=== PATIENT | female | born 1975 | race African-American/Black ===

== ENCOUNTER 2016-11-03 16:03 | Inpatient (IN) | payer OTHER ==
--- NOTE | ~2016-11-03 | IDS ---
Interim Discharge Summary [facility] [address] [place]. [address] NAME: AMAIRANI ROY : 73 STATUS : ADM IN [facility]#: [id number] AGE: 41 ADM/REG DATE : 11/03/16 MR#: [id number] REPORT SERV DATE: 11/18/16 DICTATED BY: SHELDON CAI DATE: 11/17/16 REPORT STATUS : Draft TRANSCRIBED BY: MODL DATE: 11/17/16 ADMISSION DATE: 11/03/2016 DISCHARGE DATE: REASON FOR ADMISSION: High-grade small bowel obstruction. Please refer to Dr. Dacosta's H and P on 11/03/2016, for full details on admission and interim discharge summary from Liu Lundberg on 11/10/2016, for further details on hospital stay. INTERIM DISCHARGE DIAGNOSES: 1. 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 2. Acute kidney injury. 3. Lupus. 4. Elevated alkaline phosphatase. 5. Chronic low back wound. 6. Anemia of chronic disease. 7. Mild mental retardation. 8. Acute pain secondary to surgery. 9. Leukocytosis with highly elevated procalcitonin. HOSPITAL COURSE: 1. We picked up the patient on 11/11/2016, GI was consulted on this day as well. The patient's bowel obstruction was not resolving and so Dr. Graff, finally decided to take patient to surgery on the , where he would perform diagnostic laparoscopy, right colectomy, and needle biopsy of liver. He found a cecal volvulus post surgery. The patient has been started on TPN with only clear liquids. She is tolerating clear liquids okay, then has experienced a lot of pain postoperatively. Additionally, she has had leukocytosis postop with her white blood cell count being size 21,000 and her procalcitonin being significantly elevated at 42.91. She was started on IV Mefoxin and her white blood cell count has trended down to 15. She has been afebrile. We will repeat procalcitonin tomorrow to make sure that is trending down and consider stopping IV antibiotics soon. 2. Elevated alkaline phosphatase. CASSI was checked which was negative. 3. Acute kidney injury. The patient's creatinine was at 2.19 on the when we took over and has trended down to 1.35. 4. Anemia. The patient does have anemia of chronic disease, but had some acute blood loss anemia postop and required 2 units of packed red cells. Her hemoglobin had gotten down to 6.9 and is now up to 8.4. CURRENT MEDICATION: 1. Aspirin 81 mg p.o. daily. 2. Naproxen 1 g IV q.8 hours. 3. Pepcid 20 mg IV q.12 hours. 4. Heparin 5000 units subcu q.8 hours. 5. Mycophenolate 500 mg p.o. daily. 6. Sertraline 100 mg p.o. daily. 7. TPN. Interim Discharge Summary [place] [address] [place]. [address] NAME: AMAIRANI ROY : 73 STATUS : ADM IN [facility]#: [id number] AGE: 41 ADM/REG DATE : 11/03/16 MR#: [id number] REPORT SERV DATE: 11/18/16 DICTATED BY: SHELDON CAI DATE: 11/17/16 REPORT STATUS : Draft TRANSCRIBED BY: ARCELIA DATE: 11/17/16 CURRENT PLAN: Try to continue to nurse along patient's pain and eating postoperatively and nutritional status for TPN, try to get the patient mobilized in the next few days. The patient will likely be here through the week. The patient care to be assumed by Liu Lundberg and Ten Alvarenga. SHANIQUA/ARCELIA Sheldon Cai APN / [id number] CC: Leonides Cole M.D. Johnnie Gavin M.D. MD Wesley Ferrera Jr., M.D. Christopher Lawrence Reynolds, NP
--- NOTE | ~2016-11-03 | HP ---
History And Physical [place] [id number] [facility] [place]. [address] NAME: AMAIRANI ROY : 73 STATUS : ADM IN [facility]#: [id number] AGE: 41 ADM/REG DATE : 11/03/16 MR#: [id number] REPORT SERV DATE: 11/03/16 DICTATED BY: MARTIN TUCKER II DATE: 11/03/16 REPORT STATUS : Draft TRANSCRIBED BY: MODL DATE: 11/03/16 DATE OF ADMISSION: 11/03/2016 CHIEF COMPLAINT: Nausea, vomiting, and abdominal pain. HISTORY OF PRESENT ILLNESS: The patient is a 41-year-old female with a history of lupus, DVTs, mental retardation, and chronic back wound as well as chronic anemia, who presented to [facility] due to nausea, vomiting, and abdominal pain. The patient states her symptoms started last , she has been vomiting bilious emesis. She originally went to [place] where she was apparently diagnosed with bronchitis and sent home with azithromycin. She has not improved and has had no oral intake since last week and presented to [facility] today and was found to be in acute renal failure with a small bowel obstruction. The Hospitalist Service was consulted for admission. Otherwise, the patient denies any shortness of breath, cough, recent cold, congestion, fevers, or chills. Denies any hematemesis, melena, or hematochezia. She did mention she has had been having about two to three liquid stools over the past several days since . She actually went to see her primary care physician, Dr. Gavin today, who had her come to the ER. The patient has a chronic back wound, which is reportedly managed at [place]. The patient does have some degree of likely MR and is fairly poor historian and unaware of most of her medical history and definitely does not know any of her home medications. She lives in a home with central supply assistant in an assisted living type situation, though not an official home. REVIEW OF SYSTEMS: A 10-point review of systems is otherwise negative except for HPI. PAST MEDICAL HISTORY: 1. Lupus with uncertain manifestations. 2. Anemia of chronic disease. 3. Chronic midthoracic back wound managed at [place]. 4. History of DVT. 5. Mental retardation. SURGICAL HISTORY: Cholecystectomy. SOCIAL HISTORY: The patient denies any alcohol, tobacco, or drug use. As mentioned above, she lives with a caregiver in an assisted living type at home. The central supply assistant's name is Tamanna Culver, phone number, . FAMILY HISTORY: Unknown. The patient reports her parents of unknown causes. HOME MEDICATIONS: Unknown. The patient is unaware and the central supply assistant is reportedly going to call in with a list. PHYSICAL EXAMINATION: VITAL SIGNS: Blood pressure 109/71, temperature 97.5, pulse 111, respirations 16, O2 saturation 97% on room air. History And Physical [address] [address] NAME: AMAIRANI ROY : 73 STATUS : ADM IN [facility]#: [id number] AGE: 41 ADM/REG DATE : 11/03/16 MR#: [id number] REPORT SERV DATE: 11/03/16 DICTATED BY: MARTIN TUCKER II DATE: 11/03/16 REPORT STATUS : Draft TRANSCRIBED BY: MODCira DATE: 11/03/16 GENERAL: The patient is alert and oriented x3, in no acute distress. NECK: Supple. Nontender. No lymphadenopathy or thyromegaly. HEENT: Dry mucous membranes. Pupils are equal, round, reactive to light. Conjunctivae clear. RESPIRATORY: Lungs are clear to auscultation bilaterally. No wheezes, rhonchi, or rales. CARDIOVASCULAR: Regular rate and rate and rhythm. No murmurs, rubs, or gallops. ABDOMEN: Soft with mild tenderness to palpation in the upper abdomen, but no specific masses or focal areas of tenderness. EXTREMITIES: No cyanosis, clubbing, or edema. SKIN: There is a fairly large wound in the center of the patient's back, which appears chronic and with good granulation and no evidence of cellulitis. LABORATORY DATA: WBC 13, hemoglobin 10.2, platelets 586. Sodium 142, potassium 4.1, chloride 101, CO2 of 26, BUN 44, creatinine 4.74, glucose 109. Total protein 10.8, albumin 3.1, alkaline phosphatase 1205, T bili 0.3, ALT 24, AST 26, lipase 121. Urinalysis unremarkable. RADIOGRAPHIC DATA: CT of the abdomen and pelvis shows small bowel obstruction with a small volume of ascites in the upper quadrants, slightly larger in the lower abdomen and pelvis. Also chronic wound overlying the thoracolumbar junction with soft tissue calcifications. There is suspicion for foreign body at the inferior aspect of the left kidney. ASSESSMENT AND PLAN: The patient is a 41-year-old female with, 1. Acute kidney injury likely secondary to volume depletion in setting of small bowel obstruction. We will give aggressive IV fluids and follow. CT did not show any evidence of hydronephrosis. 2. Small bowel obstruction. Dr. Graff has been notified and we will go ahead and place an NG tube and hydrate. We will perform a small-bowel follow-through in the morning. 3. Leukocytosis without any evidence of infection likely volume depletion. 4. Thrombocytosis also likely secondary to volume depletion or reactive. 5. History of lupus. The patient reports she was supposed to be on prednisone, but is unable to tell me any of her other home medications. 6. History of deep venous thrombosis, though again uncertain what medications she is on. So, we will place on a heparin drip until medications reconciled. 7. Elevated alkaline phosphatase likely secondary to her bowel obstruction. 8. Anemia of chronic disease. We will monitor and transfuse as needed. 9. Metallic foreign body in left kidney of uncertain significance. 10.The patient is a full code. NICHOLE/ARCELIA Martin Tucker II, MD / [id number] History And Physical [address] [address] NAME: AMAIRANI ROY : 73 STATUS : ADM IN [facility]#: [id number] AGE: 41 ADM/REG DATE : 11/03/16 MR#: [id number] REPORT SERV DATE: 11/03/16 DICTATED BY: MARTIN TUCKER II DATE: 11/03/16 REPORT STATUS : Draft TRANSCRIBED BY: ARCELIA DATE: 11/03/16 CC: Char Witt M.D.
--- NOTE | ~2016-11-03 | CN ---
Consultation Report [facility] [address] [place]. [address] NAME: AMAIRANI ROY : 73 STATUS : ADM IN PAT#: [id number] AGE: 41 ADM/REG DATE : 11/03/16 MR#: [id number] REPORT SERV DATE: 11/11/16 DICTATED BY: JAH PANTOJA DATE: 11/11/16 REPORT STATUS : Draft TRANSCRIBED BY: MODL DATE: 11/11/16 INPATIENT CONSULT NOTE DATE OF CONSULTATION: 11/10/2016 REASON FOR CONSULTATION: Persistent small bowel obstruction and concern for inflammatory bowel disease. HISTORY OF PRESENT ILLNESS: Mrs. Roy is a very pleasant 41-year-old female with a past medical history significant for reported systemic lupus erythematosus, history of DVTs, chronic anemia, and mild mental retardation, who presented to [facility] approximately one week ago with complaints of nausea, vomiting, and abdominal pain. The patient's symptoms had started suddenly with the acute onset of nausea and vomiting. Upon presentation and evaluation in the emergency department, she was found to have signs of acute renal failure as well as small bowel obstruction. With CT of the abdomen and pelvis and with proximal small bowel loops that were distended and fluid filled with gas fluid levels measuring up to 3.2 cm in diameter, no other significant abnormalities were noted aside from the patient's status post cholecystectomy. The patient was seen by Dr. Graff from Surgery and has been followed for the last week with little improvement in her symptoms. The patient has been unable to tolerate p.o. and continues to have frequent episodes of nausea with vomiting. The patient underwent a small bowel follow-through two days after her admission, which showed little change in migration of the contrast through the obstructed intestine strongly suggestive of a high-grade small bowel obstruction. The patient has been followed with daily KUBs without significant improvement in the dilation seen, although contrast was noted to move through the area of noted obstruction and into her colon. Speaking with the patient, the patient states that she has had intermittent episodes of diarrhea in the past , but no significant ongoing problems. The patient denies any problems with hematochezia or with abdominal pain associated with her episodes of abdominal pain. No. family history inflammatory bowel disease. No history of liver disease. No family history of GI related malignancies. By report, the patient has been noted to have "lesions" on her lower extremities that sometime has had an ulcerated appearance, although none were seen at the current point in time. Note was also made of the patient's labs, which were most significant for a markedly elevated alkaline phosphatase of over 1200. REVIEW OF SYSTEMS: All systems were reviewed and were negative aside from what was mentioned in the history of present illness. PAST MEDICAL HISTORY: Includes: 1. Mild mental retardation. 2. Systemic lupus erythematosus. Consultation Report [address] [place]. [address] NAME: AMAIRANI ROY : 73 STATUS : ADM IN PAT#: [id number] AGE: 41 ADM/REG DATE : 11/03/16 MR#: [id number] REPORT SERV DATE: 11/11/16 DICTATED BY: JAH APNTOJA DATE: 11/11/16 REPORT STATUS : Draft TRANSCRIBED BY: ARCELIA DATE: 11/11/16 3. Anemia of chronic disease. 4. Chronic mid thoracic back wounds. 5. History of DVTs. 6. Status post cholecystectomy. FAMILY HISTORY: The patient states she has no family history of IBD or GI related malignancies. No history of liver disease. SOCIAL HISTORY: The patient denies to alcohol, tobacco, or drug use. ALLERGIES: THE PATIENT HAS ALLERGIES TO SULFA MEDICATIONS. HOME MEDICATIONS: Include: 1. Aspirin. 2. Lasix. 3. Zoloft. 4. Coumadin. 5. Reglan. 6. Vitamin D. 7. CellCept. 8. Phenergan. 9. Othello. 10.Z-Vlad. 11.Calmoseptine. PHYSICAL EXAMINATION: VITAL SIGNS: Most recent vital signs include a temperature of 97.0, pulse rate of 102, blood pressure of 119/83, and saturating 98% on room air. GENERAL INSPECTION: Reveals a middle-aged female, lying on the side of her bed and actively vomiting. HEENT: Head is normocephalic, atraumatic. Oral mucosa appears to be moist. Sclerae nonicteric. Pupils are equal and round. HEART: Heart rate is mildly tachycardic. LUNGS: Sounds clear to auscultation bilaterally. ABDOMEN: Soft with only mild distention. The patient has no bowel sounds that were appreciated. No masses were appreciated. EXTREMITIES: No cyanosis, clubbing, or edema. No lesions were noted on the patient's legs aside from a single old scar with whitened discoloration. No jaundice or rash was noted. No gross motor deficits. NEUROLOGIC: She was alert. The patient was oriented and mood and affect appear to be appropriate. LABORATORY DATA: Most recent laboratory results showed a CBC with white count of 8.2, hemoglobin of 8.7, and a platelet count of 437,000. Basic electrolyte panel showed elevated BUN and creatinine of 35 and 2.2, otherwise unremarkable. The patient had previously been Consultation Report [address] [address] NAME: AMAIRANI ROY : 73 STATUS : ADM IN PAT#: [id number] AGE: 41 ADM/REG DATE : 11/03/16 MR#: [id number] REPORT SERV DATE: 11/11/16 DICTATED BY: JAH PANTOJA DATE: 11/11/16 REPORT STATUS : Draft TRANSCRIBED BY: ARCELIA DATE: 11/11/16 noted to have an isolated elevated alkaline phosphatase noted to be 1205. Total bilirubin was normal at 0.3 and transaminases were both normal as well. CT of the abdomen as well as small bowel follow-through and recent KUBs were examined and are as noted in the history of present illness. ASSESSMENT AND PLAN: Mrs. Roy is an unfortunate 41-year-old female with a past medical history of reported lupus, who presented with signs and symptoms of a high-grade small bowel obstruction. It does not appear that this bowel obstruction is resolving. It has been more than a week that she has been having symptoms, so at this point, we will defer management of this to our surgical colleagues. Unfortunately, in terms of further evaluation, endoscopy cannot be applied or pursued in this setting and is contraindicated in the setting of bowel obstruction. Given the patient's history and imaging that we have inflammatory bowel disease seems highly unlikely, although a surgical specimen could help to either prove or disprove this theory. With the patient's symptoms continuing for a week now, it would appear that a surgical resolution may be in the near future. However, for the patient's isolated alkaline phosphatase as part of the differential primary biliary cirrhosis should be considered, we would recommend an ultrasound of the abdomen as well as checking an antimitochondrial antibody for further evaluation. Thank you very much for this interesting consult. We will follow along for now. Please call with any questions or concerns. WMC/MODL Jah Pantoja MD / [id number] CC: Francisco Marie M.D.
--- NOTE | ~2016-11-03 | DS ---
Discharge Summary [facility] [address] [place]. [address] NAME: AMAIRANI ROY : 73 STATUS : DIS IN PAT#: [id number] AGE: 41 ADM/REG DATE : 11/03/16 MR#: [id number] REPORT SERV DATE: 11/22/16 DICTATED BY: REX LUNDBERG DATE: 11/21/16 REPORT STATUS : Draft TRANSCRIBED BY: MODL DATE: 11/21/16 ADMISSION DATE: 11/03/2016 DISCHARGE DATE: 11/21/2016 REASON FOR ADMISSION: Nausea, vomiting, and abdominal pain secondary to high-grade small- bowel obstruction. HISTORY OF PRESENT ILLNESS: Please refer to Dr. Dacosta's history and physical dated 11/03/2016 for complete details regarding the patient's admission. In brief, the patient was admitted to the Hospitalist Service for acute kidney injury and small bowel obstruction. HOSPITAL COURSE: From admission to 11/10/2016, please refer to my interim summary. In brief, the patient was diagnosed with high-grade small bowel obstruction. After her small- bowel follow-through, Dr. Graff was consulted. She had been slowly improving after having an NG tube and felt that her symptoms were resolving. I then handed her care off to Allegra Sharp on 11/11/2016. From hospital course 11/11/2016 to 11/18/2016, please refer to Allegra Sharp's interim summary. In brief, the patient was diagnosed with bowel obstruction secondary to cecal volvulus and then Dr. Graff took the patient to the OR to have a right colectomy. Her acute kidney injury had been resolving. GI Medicine was consulted, but given the fact that she was not improving, Dr. Graff finally took the patient to the OR. She was then started on TPN and had a markedly elevated white blood cell count of around 21,000, which have been trending down. Dr. Cole and Mr. Dr. Sharp had started the patient on cefoxitin. Hospital course from 11/19/2016 to present, I reassumed care of this patient on 11/19/2016 from Mr. Fredi Sharp, at which point, we had weaned off her TPN. She still had a poor appetite, but she was able to tolerate p.o. Physical Therapy had worked with her and felt with her chronic wounds and her recent surgery, she would best be served to be under a rehab facility. Case Management was consulted and discussed with the patient's sister, who is the power of regulatory attorney, and we have placed her at [facility]. The patient continues to have a flat affect and concerned for depression. However, after talking with her sister, she typically does not communicate very well to strangers. She showed very little motivation to ambulate, which is why we have gotten Physical Therapy to aggressively work with her. She has reached maximal hospitalization and will be discharged today, [facility] if okay by Dr. Graff. DISCHARGE DIAGNOSES: Small bowel obstruction, now resolved, secondary to cecal volvulus, status post right colectomy; acute kidney injury, now stable; lupus, on CellCept; chronic low back wound; anemia of chronic disease; mild mental retardation; leukocytosis after surgery, resolved; and a history of deep vein thrombosis, not on anticoagulation. PROCEDURES: Include consultation with Dr. Graff and Dr. Bauer. Chest x-ray, KUB, echocardiogram, small-bowel follow-through, CT scan of the abdomen and pelvis, diagnostic laparoscopy with a right colectomy and needle biopsy of liver. DISCHARGE MEDICATIONS: Include aspirin 81 mg daily, Zoloft 150 mg daily, CellCept 500 mg daily, hydrocodone p.r.n. pain #10 given, Phenergan p.r.n. nausea, Lasix 20 mg p.r.n. swelling, vitamin D 2000 units daily, Reglan 5 mg before meals and at bedtime. Discharge Summary [address] [address] NAME: AMAIRANI ROY : 73 STATUS : DIS IN PAT#: [id number] AGE: 41 ADM/REG DATE : 11/03/16 MR#: [id number] REPORT SERV DATE: 11/22/16 DICTATED BY: REX LUNDBERG DATE: 11/21/16 REPORT STATUS : Draft TRANSCRIBED BY: ARCELIA DATE: 11/21/16 Spending over 30 minutes in discharge planning, coordination of care on Ms. Amairani Roy. CHUCK/ARCELIA Rex Lundberg MD / [id number] CC: MD Johnnie Ferrera M.D. John Gwin Jr., M.D.
--- NOTE | ~2016-11-03 | OP ---
Record Of Operation [facility] [address] [place]. [address] NAME: AMAIRANI ROY : 73 STATUS : ADM IN PAT#: [id number] AGE: 41 ADM/REG DATE : 11/03/16 MR#: [id number] REPORT SERV DATE: 11/14/16 DICTATED BY: KALPANA DESOUZA JR. DATE: 11/13/16 REPORT STATUS : Draft TRANSCRIBED BY: MODL DATE: 11/13/16 DATE OF PROCEDURE: 11/13/2016 SURGEON: Kalpana Desouza M.D. COMPUTER TECHNOLOGY INSTRUCTOR: Jvoany Lira. PROCEDURE: Diagnostic laparoscopy, right colectomy, needle biopsy of liver. PREOPERATIVE DIAGNOSIS: Small bowel obstruction, abnormal liver function tests. POSTOPERATIVE DIAGNOSIS: Small bowel obstruction, abnormal liver function tests. ANESTHESIA: General. INDICATIONS: The patient has presented with intermittent small bowel obstruction, which is not completely resolved. Exploration is indicated. She also has had abnormalities in liver function tests without specific abnormality on liver imaging. FINDINGS: On laparoscopic exam of the abdomen, there is some distention of the small bowel and some chronic changes. There is evidence of a very mobile cecum which is actually partially volvulized in a bascule type fashion which appears to be the etiology, no other site of obstruction is identified. The liver does have a somewhat congested appearance. A needle biopsy was obtained. An open right colectomy was performed for treatment. No other significant findings were encountered except again for some chronic thickening of the entire small bowel. DESCRIPTION OF PROCEDURE: With adequate general anesthesia, the patient was placed in supine position. The abdomen was prepped and draped sterilely. 0.5% Marcaine was used for local infiltration of trocar sites. A supraumbilical incision was utilized. Incision was deepened through the subcutaneous tissues. The fascia and perineum were opened. The peritoneum cavity was entered. A balloon-tipped trocar was introduced, and the abdomen was insufflated with CO2. The laparoscope was introduced. Additional 5-mm trocar was placed in the left upper quadrant. The bladder findings were encountered. It was elected to proceed with enlargement of the midline incision as the colon was quite mobile. This was accomplished. The right colon was fully mobilized along the proximal transverse colon. Sites were selected for revision of the terminal ilium and the transverse colon with a MAYRA 75 and the mesentery was clamped and divided securing all bleeders with ligatures and suture ligatures of silk. Then, a [id number] functional end-to-end ileocolostomy was created. This was reinforced with suture of 3-0 silk. Then, the measured defect was also closed with suture of 3-0 silk. A core biopsy was utilized to take 2 samples from the left hepatic lobe, and these were submitted for permanent section. The abdomen was irrigated with saline. There was some ascites present. Hemostasis was assured. The wound was closed, fascial layer with 0 PDS, subcutaneous with Vicryl and dermal Monocryl. A negative pressure CHELITA dressing was applied. The patient tolerated the procedure well and left the operating room in satisfactory condition. Record Of Operation [address] [address] NAME: AMAIRANI ROY : 73 STATUS : ADM IN [facility]#: [id number] AGE: 41 ADM/REG DATE : 11/03/16 MR#: [id number] REPORT SERV DATE: 11/14/16 DICTATED BY: KALPANA DESOUZA JR. DATE: 11/13/16 REPORT STATUS : Draft TRANSCRIBED BY: ARCELIA DATE: 11/13/16 ESTIMATED BLOOD LOSS: 30 mL. DARYL/ARCELIA Kalpana Desouza Jr., M.D. / [id number] CC: Francisco Marie M.D.
--- NOTE | ~2016-11-03 | IDS ---
Interim Discharge Summary [facility] [address] [place]. [address] NAME: AMAIRANI ROY : 73 STATUS : ADM IN PAT#: [id number] AGE: 41 ADM/REG DATE : 11/03/16 MR#: [id number] REPORT SERV DATE: 11/10/16 DICTATED BY: REX LUNDBERG DATE: 11/10/16 REPORT STATUS : Draft TRANSCRIBED BY: MODL DATE: 11/10/16 ADMISSION DATE: 11/03/2016 DISCHARGE DATE: REASON FOR ADMISSION: High grade small bowel obstruction. HISTORY OF PRESENT ILLNESS: Please refer Dr. Rj Dacosta's history and physical dated 11/03/2016 for complete details regarding the patient's admission. In brief, the patient was admitted to the Hospitalist Service for management and evaluation of her small bowel obstruction and concern for an acute kidney injury. HOSPITAL COURSE: Several issues were addressed: 1. High grade small bowel obstruction. The patient had a CT of abdomen and pelvis done without contrast in emergency room, which showed small bowel obstruction and small volume ascites, chronic wound, and a possible foreign body at the inferior aspect of the left kidney. The patient had an NG-tube placed, Dr. Graff with Surgery was consulted and followed the patient throughout. She had a small bowel follow-through done on 11/05/2016, which was concerning for high grade small bowel obstruction. The following day, she was started to have some liquidy bowel movements and passed gas. Dr. Graff felt that it has been resolving. Her NG tube was removed approximately on 11/06/2016 or 11/07/2016. Since then, she has been tolerating liquids better than solids, she is currently on a solid diet, but she continues to have bilious vomit every now and then. Multiple KUBs have been performed with the last one showing some continued oral contrast scattered throughout the colon and decompressed loops of small bowel in the lower abdomen, there remains suspected gas distended loops of small bowel in the left mid abdomen. Per the nursing staff, she had significant bilious vomiting overnight, but I have never witnessed it. We will switch back to a liquid diet. Dr. Graff should be rounding on her sometime today. I suspect she has partial resolution of her small bowel obstruction with either recurrent ileus or partial small-bowel obstruction. 2. Initial concern for acute kidney injury. The patient presented with an elevated creatinine, we do not have her baseline. It was felt that she had an acute kidney injury given her dehydration, secondary to a small bowel obstruction. However, her creatinine had remained stable. Surprisingly, the CAT scan showed a foreign body at the inferior aspect of the left kidney which may be iatrogenic. Her creatinine had remained stable throughout most of the hospitalization up until the time of dictation, in which case her creatinine went to 2.36, along with an elevated BUN. We will start her on some IV fluids and continue to monitor it, but I suspect she has CKD stage 3, from a lupus nephritis, with now acute kidney injury today, secondary to dehydration. 3. Lupus with probable lupus nephritis. The patient's CellCept was continued. There does not appear to be some any findings of a lupus exacerbation at this point. 4. Chronic wound, this is been stable. 5. Possible yaxa-lw-cgnkjgwd mental retardation. The patient lives at a halfway with a sitter. She follows commands very well and will answer questions, but the patient needs be spoken to at a very low level. 6. Anemia of chronic disease. This has been stable. Interim Discharge Summary [address] [place]. [address] NAME: AMAIRANI ROY : 73 STATUS : ADM IN [facility]#: [id number] AGE: 41 ADM/REG DATE : 11/03/16 MR#: [id number] REPORT SERV DATE: 11/10/16 DICTATED BY: REX LUNDBERG DATE: 11/10/16 REPORT STATUS : Draft TRANSCRIBED BY: MODL DATE: 11/10/16 7. History of DVT. PROCEDURES: Include consultation with Dr. Graff. CT scan of the abdomen and pelvis without contrast. Multiple KUBs. Small-bowel follow-through. DISPOSITION: I anticipate the patient to be discharged back to the halfway once she is able to tolerate food and her bowel obstruction has resolved. Further disposition per Dr. Cole, who will assume care of the patient on 11/11/2016. CHUCK/ARCELIA Rex Lundberg MD / [id number] CC: Rex Lundberg MD
[2016-11-03 16:22] LABS: BASOPHILS 0.2 %; BASOPHILS ABSOLUTE 0.02 10/3/uL (0.0-0.16); EOSINOPHILS 0.6 %; EOSINOPHILS ABSOLUTE 0.08 10/3/uL (0.0-0.53); HEMOGLOBIN 10.2 g/dL (12.0-16.0); IMMATURE GRANULOCYTES 0.6 %; IMMATURE GRANULOCYTES ABSOLUTE 0.08 10/3/uL (0.0-0.11); LYMPHOCYTES ABSOLUTE 2.08 10/3/uL (0.67-4.30); MEAN CORPUS HGB CONC 30.2 g/dL (32.0-36.0); MEAN CORPUSCULAR HEMOGLOB 26.4 pg (26.0-34.0); MEAN CORPUSCULAR VOLUME 87.3 fL (80-100); MEAN PLATELET VOLUME 9.4 fL (9.2-13.0); MONOCYTES 12.3 %; MONOCYTES ABSOLUTE 1.61 10/3/uL (0.21-1.20); NEUTROPHILS 70.3 %; NEUTROPHILS ABSOLUTE 9.17 10/3/uL (2.02-8.40); RBC DISTRIBUTION WIDTH 18.3 % (12.0-16.0); RED CELL COUNT 3.87 10/6/uL (4.0-5.6)
[2016-11-03 16:23] LABS: ER CBC TAT 0 Hrs 05 Mins; HEMATOCRIT 33.8 % (36.0-48.0); MANUAL DIFF NO %; PLATELET COUNT 586 10/3/uL (150-400)
[2016-11-03 16:47] LABS: CHLORIDE, SERUM 101 MMOL/L (96-112); CO2 (CARBON DIOXIDE) 26 MMOL/L (24-34); GLUCOSE, SERUM 109 MG/DL (60-99); SGOT(AST) 26 U/L (5-40); SGPT(ALT) 24 U/L (5-65); SODIUM, SERUM 142 MMOL/L (135-148); TOTAL BILIRUBIN 0.3 MG/DL (0-1.2)
[2016-11-03 16:50] LABS: A/G RATIO 0.4 (0.7-1.9); ALBUMIN 3.1 G/DL (3.5-5.0); ALKALINE PHOSPHATASE 1205 U/L (45-117); BUN (BLOOD UREA NITROGEN) 44 MG/DL (6-23); CALCIUM, SERUM 9.3 MG/DL (8.5-10.4); CREATININE 4.74 MG/DL (0.55-1.02); GFR AFRICAN AMERICAN 12 ML/MIN (>=60); GFR NON AFRICAN AMERICAN 11 ML/MIN (>=60); GLOBULIN 7.7 G/DL (2.5-4.1); POTASSIUM, SERUM 4.1 MMOL/L (3.5-5.3); TOTAL PROTEIN 10.8 G/DL (6.0-8.5)
[2016-11-03 18:52] LABS: ASCORBIC ACID (UR NOT ORDER) NEG (NEG); BILIRUBIN, URINE SMALL (NEG); ER URINALYSIS TAT 0 Hrs 12 Mins; KETONE, URINE TRACE MG/DL (NEG); LEUKOCYTE ESTERASE(NOT OR TRACE (NEG); NITRITE (URINE) NEG (NEG); WBC (NOT ORDERED) (RFLEX) 2 (0-5)
[2016-11-03] MEDS ORDERED: REG5 PO (19:44)
[2016-11-03] MEDS ORDERED: ZOL100 PO (19:44)
[2016-11-03] MEDS ORDERED: ASAB PO (19:44)
[2016-11-03] MEDS ORDERED: C5 PO (19:44)
[2016-11-03] MEDS ORDERED: L20 PO (19:44)
[2016-11-03] MEDS ORDERED: CELLCEPT5 PO (19:45)
[2016-11-03] MEDS ORDERED: PR25 PO (19:45)
[2016-11-03] MEDS ORDERED: VITAMIN D2000 UNIT PO (19:45)
[2016-11-03] MEDS ORDERED: Z-PAK PO (19:46)
[2016-11-03] MEDS ORDERED: NORCO1 TA1 PO (19:46)
[2016-11-03] MEDS ORDERED: CALMOSEPTINE O2.5 OZ TOP (19:46)
[2016-11-04 06:23] LABS: BASOPHILS 0.2 %; BASOPHILS ABSOLUTE 0.02 10/3/uL (0.0-0.16); EOSINOPHILS ABSOLUTE 0.17 10/3/uL (0.0-0.53); HEMOGLOBIN 8.4 g/dL (12.0-16.0); IMMATURE GRANULOCYTES 0.4 %; IMMATURE GRANULOCYTES ABSOLUTE 0.03 10/3/uL (0.0-0.11); LYMPHOCYTES 21.2 %; LYMPHOCYTES ABSOLUTE 1.81 10/3/uL (0.67-4.30); MEAN CORPUS HGB CONC 29.6 g/dL (32.0-36.0); MEAN CORPUSCULAR VOLUME 87.9 fL (80-100); MEAN PLATELET VOLUME 9.4 fL (9.2-13.0); MONOCYTES ABSOLUTE 1.45 10/3/uL (0.21-1.20); NEUTROPHILS 59.2 %; NEUTROPHILS ABSOLUTE 5.07 10/3/uL (2.02-8.40); PLATELET COUNT 457 10/3/uL (150-400); RED CELL COUNT 3.23 10/6/uL (4.0-5.6); WHITE BLOOD CELLS 8.6 10/3/uL (4.5-10.5)
[2016-11-04 06:28] LABS: HEMATOCRIT 28.4 % (36.0-48.0); MANUAL DIFF NO %
[2016-11-04 06:50] LABS: A/G RATIO 0.4 (0.7-1.9); ALBUMIN 2.4 G/DL (3.5-5.0); ALKALINE PHOSPHATASE 987 U/L (45-117); BUN (BLOOD UREA NITROGEN) 45 MG/DL (6-23); CALCIUM, SERUM 7.5 MG/DL (8.5-10.4); CHLORIDE, SERUM 109 MMOL/L (96-112); CO2 (CARBON DIOXIDE) 25 MMOL/L (24-34); CREATININE 4.03 MG/DL (0.55-1.02); GFR AFRICAN AMERICAN 15 ML/MIN (>=60); GFR NON AFRICAN AMERICAN 13 ML/MIN (>=60); GLOBULIN 5.8 G/DL (2.5-4.1); GLUCOSE, SERUM 100 MG/DL (60-99); PHOSPHORUS, SERUM 4.9 MG/DL (2.5-4.5); POTASSIUM, SERUM 3.5 MMOL/L (3.5-5.3); SGOT(AST) 80 U/L (5-40); SGPT(ALT) 30 U/L (5-65); SODIUM, SERUM 147 MMOL/L (135-148); TOTAL BILIRUBIN 0.8 MG/DL (0-1.2); TOTAL PROTEIN 8.2 G/DL (6.0-8.5)
[2016-11-04 16:23] LABS: PARTIAL THROMBO TIME > 150.0 SEC (22.5-37.2)
[2016-11-04 17:23] LABS: INTERNATIONAL NORMAL RATI 4.2 UNITS (-); PROTIME (NOT ORD) 40.4 SEC (12.0-14.5)
[2016-11-05 06:44] LABS: BASOPHILS 0.2 %; BASOPHILS ABSOLUTE 0.02 10/3/uL (0.0-0.16); EOSINOPHILS 1.2 %; HEMATOCRIT 27.1 % (36.0-48.0); HEMOGLOBIN 7.9 g/dL (12.0-16.0); IMMATURE GRANULOCYTES ABSOLUTE 0.08 10/3/uL (0.0-0.11); LYMPHOCYTES 13.5 %; LYMPHOCYTES ABSOLUTE 1.12 10/3/uL (0.67-4.30); MEAN CORPUS HGB CONC 29.2 g/dL (32.0-36.0); MEAN CORPUSCULAR HEMOGLOB 26.4 pg (26.0-34.0); MEAN PLATELET VOLUME 8.9 fL (9.2-13.0); MONOCYTES 11.1 %; MONOCYTES ABSOLUTE 0.92 10/3/uL (0.21-1.20); NEUTROPHILS ABSOLUTE 6.07 10/3/uL (2.02-8.40); PLATELET COUNT 439 10/3/uL (150-400); RBC DISTRIBUTION WIDTH 18.1 % (12.0-16.0); RED CELL COUNT 2.99 10/6/uL (4.0-5.6); WHITE BLOOD CELLS 8.3 10/3/uL (4.5-10.5)
[2016-11-05 06:45] LABS: MANUAL DIFF NO %; MEAN CORPUSCULAR VOLUME 90.6 fL (80-100)
[2016-11-05 06:48] LABS: INTERNATIONAL NORMAL RATI 3.6 UNITS (-); PROTIME (NOT ORD) 35.9 SEC (12.0-14.5)
[2016-11-05 06:54] LABS: CALCIUM, SERUM 7.5 MG/DL (8.5-10.4); CHLORIDE, SERUM 120 MMOL/L (96-112); GLUCOSE, SERUM 81 MG/DL (60-99); POTASSIUM, SERUM 3.6 MMOL/L (3.5-5.3); SODIUM, SERUM 150 MMOL/L (135-148)
[2016-11-05 06:55] LABS: BUN (BLOOD UREA NITROGEN) 35 MG/DL (6-23); CO2 (CARBON DIOXIDE) 18 MMOL/L (24-34); CREATININE 2.12 MG/DL (0.55-1.02); GFR AFRICAN AMERICAN 32 ML/MIN (>=60); GFR NON AFRICAN AMERICAN 28 ML/MIN (>=60); PHOSPHORUS, SERUM 3.6 MG/DL (2.5-4.5)
[2016-11-06 05:53] LABS: HEMATOCRIT 29.1 % (36.0-48.0); HEMOGLOBIN 8.3 g/dL (12.0-16.0); MEAN CORPUS HGB CONC 28.5 g/dL (32.0-36.0); MEAN CORPUSCULAR HEMOGLOB 26.1 pg (26.0-34.0); MEAN CORPUSCULAR VOLUME 91.5 fL (80-100); MEAN PLATELET VOLUME 8.8 fL (9.2-13.0); NUCLEATED RED BLOOD CELLS 1.4 /100WBC (0-0); PLATELET COUNT 482 10/3/uL (150-400); RBC DISTRIBUTION WIDTH 18.3 % (12.0-16.0); RED CELL COUNT 3.18 10/6/uL (4.0-5.6); WHITE BLOOD CELLS 10.2 10/3/uL (4.5-10.5)
[2016-11-06 05:54] LABS: INTERNATIONAL NORMAL RATI 3.4 UNITS (-); MANUAL DIFF YES %; PROTIME (NOT ORD) 33.7 SEC (12.0-14.5)
[2016-11-06 05:57] LABS: CALCIUM, SERUM 7.8 MG/DL (8.5-10.4); CHLORIDE, SERUM 116 MMOL/L (96-112); CO2 (CARBON DIOXIDE) 20 MMOL/L (24-34); CREATININE 1.71 MG/DL (0.55-1.02); GFR AFRICAN AMERICAN 42 ML/MIN (>=60); GFR NON AFRICAN AMERICAN 36 ML/MIN (>=60); POTASSIUM, SERUM 3.5 MMOL/L (3.5-5.3); SODIUM, SERUM 146 MMOL/L (135-148)
[2016-11-06 06:00] LABS: BUN (BLOOD UREA NITROGEN) 26 MG/DL (6-23); GLUCOSE, SERUM 106 MG/DL (60-99); PHOSPHORUS, SERUM 2.6 MG/DL (2.5-4.5)
[2016-11-06 07:25] LABS: ANISOCYTOSIS 1+ (5-10/OIF) (0-5/OIF); BAND NEUTROPHILS 4 %; EOSINOPHILS 1 %; HYPOCHROMIA 1+ (3-10/OIF) (0-2/OIF); LYMPHOCYTES 12 %; LYMPHOCYTES ABSOLUTE (CALC) 1.22 10/3/uL (0.67-4.30); MACROCYTES 1+ (5-10/OIF) (0-5/OIF); METAMYELOCYTES 1 %; MONOCYTES 5 %; MONOCYTES ABSOLUTE (CALC) 0.51 10/3/uL (0.21-1.20); NEUTROPHILS ABSOLUTE (CALC) 8.26 10/3/uL (2.02-8.40); PLATELET ESTIMATE SLT INC (ADEQUATE); POLYCHROMASIA 1+ (2-5/OIF) (0-1/OIF); SEGMENTED NEUTROPHIL (0) 77 %; TOTAL NUCLEATED CELLS 100
[2016-11-07 06:06] LABS: BASOPHILS 0.1 %; BASOPHILS ABSOLUTE 0.01 10/3/uL (0.0-0.16); EOSINOPHILS 3.1 %; EOSINOPHILS ABSOLUTE 0.29 10/3/uL (0.0-0.53); HEMATOCRIT 28.8 % (36.0-48.0); HEMOGLOBIN 8.7 g/dL (12.0-16.0); IMMATURE GRANULOCYTES 1.7 %; IMMATURE GRANULOCYTES ABSOLUTE 0.16 10/3/uL (0.0-0.11); LYMPHOCYTES 15.1 %; LYMPHOCYTES ABSOLUTE 1.41 10/3/uL (0.67-4.30); MEAN CORPUSCULAR HEMOGLOB 26.4 pg (26.0-34.0); MEAN PLATELET VOLUME 9.2 fL (9.2-13.0); MONOCYTES 13.2 %; MONOCYTES ABSOLUTE 1.23 10/3/uL (0.21-1.20); NEUTROPHILS 66.8 %; NEUTROPHILS ABSOLUTE 6.22 10/3/uL (2.02-8.40); PLATELET COUNT 418 10/3/uL (150-400); RBC DISTRIBUTION WIDTH 17.8 % (12.0-16.0); WHITE BLOOD CELLS 9.3 10/3/uL (4.5-10.5)
[2016-11-07 06:11] LABS: MANUAL DIFF NO %; MEAN CORPUS HGB CONC 30.2 g/dL (32.0-36.0); MEAN CORPUSCULAR VOLUME 87.3 fL (80-100)
[2016-11-07 06:15] LABS: CALCIUM, SERUM 7.7 MG/DL (8.5-10.4); CHLORIDE, SERUM 107 MMOL/L (96-112); CO2 (CARBON DIOXIDE) 21 MMOL/L (24-34); CREATININE 1.76 MG/DL (0.55-1.02); GFR AFRICAN AMERICAN 41 ML/MIN (>=60); GFR NON AFRICAN AMERICAN 35 ML/MIN (>=60); GLUCOSE, SERUM 93 MG/DL (60-99); PHOSPHORUS, SERUM 2.4 MG/DL (2.5-4.5); POTASSIUM, SERUM 3.2 MMOL/L (3.5-5.3); SODIUM, SERUM 141 MMOL/L (135-148)
[2016-11-07 06:18] LABS: BUN (BLOOD UREA NITROGEN) 21 MG/DL (6-23)
[2016-11-08 07:24] LABS: BASOPHILS 0.2 %; BASOPHILS ABSOLUTE 0.02 10/3/uL (0.0-0.16); EOSINOPHILS 3.1 %; EOSINOPHILS ABSOLUTE 0.31 10/3/uL (0.0-0.53); HEMATOCRIT 27.9 % (36.0-48.0); HEMOGLOBIN 8.6 g/dL (12.0-16.0); IMMATURE GRANULOCYTES 1.4 %; IMMATURE GRANULOCYTES ABSOLUTE 0.14 10/3/uL (0.0-0.11); LYMPHOCYTES 13.2 %; LYMPHOCYTES ABSOLUTE 1.32 10/3/uL (0.67-4.30); MEAN CORPUS HGB CONC 30.8 g/dL (32.0-36.0); MEAN CORPUSCULAR HEMOGLOB 26.1 pg (26.0-34.0); MEAN PLATELET VOLUME 8.9 fL (9.2-13.0); MONOCYTES 15.1 %; MONOCYTES ABSOLUTE 1.51 10/3/uL (0.21-1.20); NEUTROPHILS ABSOLUTE 6.68 10/3/uL (2.02-8.40); PLATELET COUNT 414 10/3/uL (150-400); RBC DISTRIBUTION WIDTH 17.5 % (12.0-16.0)
[2016-11-08 07:28] LABS: MANUAL DIFF NO %; MEAN CORPUSCULAR VOLUME 84.5 fL (80-100)
[2016-11-08 07:37] LABS: BUN (BLOOD UREA NITROGEN) 20 MG/DL (6-23); CALCIUM, SERUM 7.7 MG/DL (8.5-10.4); CHLORIDE, SERUM 108 MMOL/L (96-112); CO2 (CARBON DIOXIDE) 21 MMOL/L (24-34); CREATININE 1.64 MG/DL (0.55-1.02); GFR AFRICAN AMERICAN 44 ML/MIN (>=60); GFR NON AFRICAN AMERICAN 38 ML/MIN (>=60); GLUCOSE, SERUM 88 MG/DL (60-99); PHOSPHORUS, SERUM 2.8 MG/DL (2.5-4.5); POTASSIUM, SERUM 3.4 MMOL/L (3.5-5.3); SODIUM, SERUM 141 MMOL/L (135-148)
[2016-11-09 07:45] LABS: HEMATOCRIT 28.8 % (36.0-48.0); MEAN CORPUS HGB CONC 31.3 g/dL (32.0-36.0); MEAN CORPUSCULAR HEMOGLOB 26.5 pg (26.0-34.0); MEAN CORPUSCULAR VOLUME 84.7 fL (80-100); MEAN PLATELET VOLUME 8.7 fL (9.2-13.0); PLATELET COUNT 440 10/3/uL (150-400); RBC DISTRIBUTION WIDTH 17.8 % (12.0-16.0); WHITE BLOOD CELLS 10.2 10/3/uL (4.5-10.5)
[2016-11-09 07:46] LABS: MANUAL DIFF YES %
[2016-11-09 07:54] LABS: CALCIUM, SERUM 8.2 MG/DL (8.5-10.4); CHLORIDE, SERUM 110 MMOL/L (96-112); CO2 (CARBON DIOXIDE) 20 MMOL/L (24-34); CREATININE 1.73 MG/DL (0.55-1.02); GFR AFRICAN AMERICAN 41 ML/MIN (>=60); GFR NON AFRICAN AMERICAN 36 ML/MIN (>=60); GLUCOSE, SERUM 92 MG/DL (60-99); PHOSPHORUS, SERUM 3.3 MG/DL (2.5-4.5); SODIUM, SERUM 143 MMOL/L (135-148)
[2016-11-09 07:56] LABS: POTASSIUM, SERUM 3.6 MMOL/L (3.5-5.3)
[2016-11-09 07:57] LABS: BUN (BLOOD UREA NITROGEN) 24 MG/DL (6-23)
[2016-11-09 08:01] LABS: HYPOCHROMIA 1+ (3-10/OIF) (0-2/OIF); LYMPHOCYTES 12 %; LYMPHOCYTES ABSOLUTE (CALC) 1.22 10/3/uL (0.67-4.30); MONOCYTES 13 %; MONOCYTES ABSOLUTE (CALC) 1.33 10/3/uL (0.21-1.20); NEUTROPHILS ABSOLUTE (CALC) 7.65 10/3/uL (2.02-8.40); SEGMENTED NEUTROPHIL (0) 75 %; TOTAL NUCLEATED CELLS 100
[2016-11-09 08:02] LABS: ANISOCYTOSIS 1+ (5-10/OIF) (0-5/OIF); PLATELET ESTIMATE SLT INC (ADEQUATE)
[2016-11-10 06:48] LABS: BASOPHILS 0.2 %; BASOPHILS ABSOLUTE 0.02 10/3/uL (0.0-0.16); EOSINOPHILS 2.7 %; EOSINOPHILS ABSOLUTE 0.23 10/3/uL (0.0-0.53); HEMATOCRIT 30.2 % (36.0-48.0); HEMOGLOBIN 9.2 g/dL (12.0-16.0); IMMATURE GRANULOCYTES 0.8 %; IMMATURE GRANULOCYTES ABSOLUTE 0.07 10/3/uL (0.0-0.11); LYMPHOCYTES ABSOLUTE 1.72 10/3/uL (0.67-4.30); MEAN CORPUS HGB CONC 30.5 g/dL (32.0-36.0); MEAN CORPUSCULAR HEMOGLOB 26.3 pg (26.0-34.0); MEAN CORPUSCULAR VOLUME 86.3 fL (80-100); MEAN PLATELET VOLUME 9.6 fL (9.2-13.0); MONOCYTES 19.1 %; MONOCYTES ABSOLUTE 1.64 10/3/uL (0.21-1.20); NEUTROPHILS 57.2 %; NEUTROPHILS ABSOLUTE 4.92 10/3/uL (2.02-8.40); PLATELET COUNT 471 10/3/uL (150-400); RBC DISTRIBUTION WIDTH 17.5 % (12.0-16.0); WHITE BLOOD CELLS 8.6 10/3/uL (4.5-10.5)
[2016-11-10 06:50] LABS: MANUAL DIFF NO %
[2016-11-10 06:59] LABS: CALCIUM, SERUM 8.4 MG/DL (8.5-10.4); CHLORIDE, SERUM 110 MMOL/L (96-112); CO2 (CARBON DIOXIDE) 21 MMOL/L (24-34); GLUCOSE, SERUM 89 MG/DL (60-99); POTASSIUM, SERUM 3.7 MMOL/L (3.5-5.3); SODIUM, SERUM 144 MMOL/L (135-148)
[2016-11-10 07:00] LABS: BUN (BLOOD UREA NITROGEN) 33 MG/DL (6-23); CREATININE 2.36 MG/DL (0.55-1.02); GFR AFRICAN AMERICAN 28 ML/MIN (>=60); GFR NON AFRICAN AMERICAN 25 ML/MIN (>=60); PHOSPHORUS, SERUM 4.4 MG/DL (2.5-4.5)
[2016-11-11 04:44] LABS: BASOPHILS 0.2 %; BASOPHILS ABSOLUTE 0.02 10/3/uL (0.0-0.16); EOSINOPHILS 3.3 %; EOSINOPHILS ABSOLUTE 0.27 10/3/uL (0.0-0.53); HEMATOCRIT 28.7 % (36.0-48.0); HEMOGLOBIN 8.7 g/dL (12.0-16.0); IMMATURE GRANULOCYTES 0.9 %; IMMATURE GRANULOCYTES ABSOLUTE 0.07 10/3/uL (0.0-0.11); LYMPHOCYTES 18.7 %; LYMPHOCYTES ABSOLUTE 1.53 10/3/uL (0.67-4.30); MEAN CORPUS HGB CONC 30.3 g/dL (32.0-36.0); MEAN CORPUSCULAR HEMOGLOB 26.4 pg (26.0-34.0); MONOCYTES 17.7 %; MONOCYTES ABSOLUTE 1.45 10/3/uL (0.21-1.20); NEUTROPHILS 59.2 %; NEUTROPHILS ABSOLUTE 4.85 10/3/uL (2.02-8.40); PLATELET COUNT 437 10/3/uL (150-400); RBC DISTRIBUTION WIDTH 17.5 % (12.0-16.0); WHITE BLOOD CELLS 8.2 10/3/uL (4.5-10.5)
[2016-11-11 04:46] LABS: MANUAL DIFF NO %
[2016-11-11 04:56] LABS: BUN (BLOOD UREA NITROGEN) 35 MG/DL (6-23); CALCIUM, SERUM 8.3 MG/DL (8.5-10.4); CHLORIDE, SERUM 112 MMOL/L (96-112); CO2 (CARBON DIOXIDE) 21 MMOL/L (24-34); CREATININE 2.19 MG/DL (0.55-1.02); GFR AFRICAN AMERICAN 31 ML/MIN (>=60); GFR NON AFRICAN AMERICAN 27 ML/MIN (>=60); GLUCOSE, SERUM 78 MG/DL (60-99); PHOSPHORUS, SERUM 3.7 MG/DL (2.5-4.5); POTASSIUM, SERUM 3.6 MMOL/L (3.5-5.3); SODIUM, SERUM 147 MMOL/L (135-148)
[2016-11-12 07:14] LABS: HEMOGLOBIN 7.5 g/dL (12.0-16.0); MEAN CORPUS HGB CONC 31.1 g/dL (32.0-36.0); MEAN CORPUSCULAR HEMOGLOB 26.6 pg (26.0-34.0); MEAN CORPUSCULAR VOLUME 85.5 fL (80-100); MEAN PLATELET VOLUME 8.9 fL (9.2-13.0); PLATELET COUNT 342 10/3/uL (150-400); RBC DISTRIBUTION WIDTH 17.7 % (12.0-16.0); RED CELL COUNT 2.82 10/6/uL (4.0-5.6); RETICULOCYTE COUNT 1.2 % (0.5-2.5); RETICULOCYTE COUNT ABSOLUTE 34.1 10/3/uL (20.2-119.8); WHITE BLOOD CELLS 7.1 10/3/uL (4.5-10.5)
[2016-11-12 07:15] LABS: HEMATOCRIT 24.1 % (36.0-48.0); MANUAL DIFF YES %
[2016-11-12 08:07] LABS: % IRON SAT 16 % (20-50); A/G RATIO 0.4 (0.7-1.9); ALBUMIN 1.9 G/DL (3.5-5.0); ALKALINE PHOSPHATASE 498 U/L (45-117); BUN (BLOOD UREA NITROGEN) 31 MG/DL (6-23); CALCIUM, SERUM 7.6 MG/DL (8.5-10.4); CHLORIDE, SERUM 115 MMOL/L (96-112); CO2 (CARBON DIOXIDE) 20 MMOL/L (24-34); CREATININE 1.81 MG/DL (0.55-1.02); DIRECT BILIRUBIN 0.1 MG/DL (0.0-0.4); FERRITIN 986 NG/ML (8-252); GAMMA GT 441 U/L (5-85); GFR AFRICAN AMERICAN 39 ML/MIN (>=60); GFR NON AFRICAN AMERICAN 34 ML/MIN (>=60); GLOBULIN 5.2 G/DL (2.5-4.1); GLUCOSE, SERUM 77 MG/DL (60-99); INDIRECT BILIRUBIN(NOT ORDER) 0.2 MG/DL (0.1-0.9); IRON BINDING CAPACITY 134 MCG/DL (225-410); IRON, SERUM 21 MCG/DL (35-150); PHOSPHORUS, SERUM 3.2 MG/DL (2.5-4.5); POTASSIUM, SERUM 3.4 MMOL/L (3.5-5.3); SGOT(AST) 18 U/L (5-40); SGPT(ALT) 8 U/L (5-65); SODIUM, SERUM 145 MMOL/L (135-148); TOTAL BILIRUBIN 0.3 MG/DL (0-1.2); TOTAL PROTEIN 7.1 G/DL (6.0-8.5)
[2016-11-12 08:08] LABS: SED RATE 84 MM/HR (0-20)
[2016-11-12 08:40] LABS: ANISOCYTOSIS 1+ (5-10/OIF) (0-5/OIF); EOSINOPHILS 2 %; EOSINOPHILS ABSOLUTE (CALC) 0.14 10/3/uL (0.0-0.53); LYMPHOCYTES 18 %; LYMPHOCYTES ABSOLUTE (CALC) 1.28 10/3/uL (0.67-4.30); MONOCYTES 20 %; MONOCYTES ABSOLUTE (CALC) 1.42 10/3/uL (0.21-1.20); NEUTROPHILS ABSOLUTE (CALC) 4.26 10/3/uL (2.02-8.40); PLATELET ESTIMATE ADQ (ADEQUATE); SEGMENTED NEUTROPHIL (0) 60 %; TOTAL NUCLEATED CELLS 100
[2016-11-12 08:41] LABS: OVALOCYTES 1+ (3-10/OIF) (0-2/OIF)
[2016-11-13 07:04] LABS: A/G RATIO 0.3 (0.7-1.9); ALBUMIN 1.7 G/DL (3.5-5.0); CALCIUM, SERUM 7.4 MG/DL (8.5-10.4); CHLORIDE, SERUM 118 MMOL/L (96-112); CREATININE 1.32 MG/DL (0.55-1.02); GFR AFRICAN AMERICAN 58 ML/MIN (>=60); GFR NON AFRICAN AMERICAN 50 ML/MIN (>=60); GLOBULIN 5.1 G/DL (2.5-4.1); GLUCOSE, SERUM 80 MG/DL (60-99); PHOSPHORUS, SERUM 2.7 MG/DL (2.5-4.5); POTASSIUM, SERUM 4.1 MMOL/L (3.5-5.3); SODIUM, SERUM 144 MMOL/L (135-148); TOTAL BILIRUBIN 0.7 MG/DL (0-1.2); TOTAL PROTEIN 6.8 G/DL (6.0-8.5)
[2016-11-13 07:09] LABS: ALKALINE PHOSPHATASE 451 U/L (45-117); BUN (BLOOD UREA NITROGEN) 25 MG/DL (6-23); CO2 (CARBON DIOXIDE) 14 MMOL/L (24-34); SGOT(AST) 19 U/L (5-40); SGPT(ALT) < 6 U/L (5-65)
[2016-11-13 10:58] LABS: BASOPHILS 0.1 %; BASOPHILS ABSOLUTE 0.01 10/3/uL (0.0-0.16); EOSINOPHILS 3.3 %; EOSINOPHILS ABSOLUTE 0.25 10/3/uL (0.0-0.53); HEMATOCRIT 25.9 % (36.0-48.0); HEMOGLOBIN 7.9 g/dL (12.0-16.0); IMMATURE GRANULOCYTES 1.6 %; IMMATURE GRANULOCYTES ABSOLUTE 0.12 10/3/uL (0.0-0.11); LYMPHOCYTES 20.7 %; LYMPHOCYTES ABSOLUTE 1.59 10/3/uL (0.67-4.30); MEAN CORPUS HGB CONC 30.5 g/dL (32.0-36.0); MEAN CORPUSCULAR HEMOGLOB 26.4 pg (26.0-34.0); MEAN CORPUSCULAR VOLUME 86.6 fL (80-100); MEAN PLATELET VOLUME 8.6 fL (9.2-13.0); MONOCYTES 14.2 %; MONOCYTES ABSOLUTE 1.09 10/3/uL (0.21-1.20); NEUTROPHILS 60.1 %; NEUTROPHILS ABSOLUTE 4.62 10/3/uL (2.02-8.40); PLATELET COUNT 332 10/3/uL (150-400); RED CELL COUNT 2.99 10/6/uL (4.0-5.6); WHITE BLOOD CELLS 7.7 10/3/uL (4.5-10.5)
[2016-11-13 10:59] LABS: MANUAL DIFF NO %
[2016-11-13 22:21] LABS: HEMATOCRIT 25.1 % (36.0-48.0); HEMOGLOBIN 7.7 g/dL (12.0-16.0); MEAN CORPUS HGB CONC 30.7 g/dL (32.0-36.0); MEAN CORPUSCULAR HEMOGLOB 26.9 pg (26.0-34.0); MEAN CORPUSCULAR VOLUME 87.8 fL (80-100); MEAN PLATELET VOLUME 8.9 fL (9.2-13.0); PLATELET COUNT 334 10/3/uL (150-400); RBC DISTRIBUTION WIDTH 18.1 % (12.0-16.0); RED CELL COUNT 2.86 10/6/uL (4.0-5.6); WHITE BLOOD CELLS 10.7 10/3/uL (4.5-10.5)
[2016-11-13 22:25] LABS: MANUAL DIFF YES %
[2016-11-13 22:34] LABS: CALCIUM, SERUM 7.1 MG/DL (8.5-10.4); CHLORIDE, SERUM 117 MMOL/L (96-112); GFR AFRICAN AMERICAN 54 ML/MIN (>=60); GFR NON AFRICAN AMERICAN 46 ML/MIN (>=60); POTASSIUM, SERUM 3.8 MMOL/L (3.5-5.3); SODIUM, SERUM 146 MMOL/L (135-148)
[2016-11-13 22:35] LABS: BUN (BLOOD UREA NITROGEN) 21 MG/DL (6-23); CO2 (CARBON DIOXIDE) 17 MMOL/L (24-34); GLUCOSE, SERUM 100 MG/DL (60-99)
[2016-11-13 22:43] LABS: SEGMENTED NEUTROPHIL (0) 76 %; TOTAL NUCLEATED CELLS 100
[2016-11-13 22:44] LABS: ANISOCYTOSIS 1+ (5-10/OIF) (0-5/OIF); BAND NEUTROPHILS 10 %; EOSINOPHILS 1 %; EOSINOPHILS ABSOLUTE (CALC) 0.11 10/3/uL (0.0-0.53); IMMATURE GRANS ABSOLUTE (CALC) 0.11 10/3/uL (0.0-0.11); LYMPHOCYTES 10 %; LYMPHOCYTES ABSOLUTE (CALC) 1.07 10/3/uL (0.67-4.30); METAMYELOCYTES 1 %; MONOCYTES 2 %; MONOCYTES ABSOLUTE (CALC) 0.21 10/3/uL (0.21-1.20); PLATELET ESTIMATE ADQ (ADEQUATE)
[2016-11-14 06:58] LABS: HEMATOCRIT 24.9 % (36.0-48.0); HEMOGLOBIN 7.7 g/dL (12.0-16.0); MEAN CORPUS HGB CONC 30.9 g/dL (32.0-36.0); MEAN CORPUSCULAR HEMOGLOB 26.4 pg (26.0-34.0); MEAN CORPUSCULAR VOLUME 85.3 fL (80-100); MEAN PLATELET VOLUME 8.7 fL (9.2-13.0); PLATELET COUNT 298 10/3/uL (150-400); RBC DISTRIBUTION WIDTH 18.1 % (12.0-16.0); RED CELL COUNT 2.92 10/6/uL (4.0-5.6)
[2016-11-14 06:59] LABS: MANUAL DIFF YES %; WHITE BLOOD CELLS 20.6 10/3/uL (4.5-10.5)
[2016-11-14 07:04] LABS: INTERNATIONAL NORMAL RATI 1.6 UNITS (-); PROTIME (NOT ORD) 19.1 SEC (12.0-14.5)
[2016-11-14 07:17] LABS: BUN (BLOOD UREA NITROGEN) 20 MG/DL (6-23); CALCIUM, SERUM 7.6 MG/DL (8.5-10.4); CHLORIDE, SERUM 113 MMOL/L (96-112); CREATININE 1.61 MG/DL (0.55-1.02); GFR AFRICAN AMERICAN 45 ML/MIN (>=60); GFR NON AFRICAN AMERICAN 39 ML/MIN (>=60); GLUCOSE, SERUM 98 MG/DL (60-99); PHOSPHORUS, SERUM 3.5 MG/DL (2.5-4.5); POTASSIUM, SERUM 4.2 MMOL/L (3.5-5.3); SGOT(AST) 18 U/L (5-40); SGPT(ALT) 6 U/L (5-65); SODIUM, SERUM 144 MMOL/L (135-148); TOTAL BILIRUBIN 0.3 MG/DL (0-1.2); TOTAL PROTEIN 6.1 G/DL (6.0-8.5)
[2016-11-14 07:18] LABS: A/G RATIO 0.5 (0.7-1.9); ALBUMIN 2.1 G/DL (3.5-5.0); ALKALINE PHOSPHATASE 301 U/L (45-117); CO2 (CARBON DIOXIDE) 15 MMOL/L (24-34)
[2016-11-14 07:25] LABS: PREALBUMIN 7.4 MG/DL (17.0-43.0)
[2016-11-14 07:33] LABS: ANISOCYTOSIS 1+ (5-10/OIF) (0-5/OIF); BAND NEUTROPHILS 12 %; HYPOCHROMIA 1+ (3-10/OIF) (0-2/OIF); LYMPHOCYTES 4 %; LYMPHOCYTES ABSOLUTE (CALC) 0.82 10/3/uL (0.67-4.30); MONOCYTES 5 %; MONOCYTES ABSOLUTE (CALC) 1.03 10/3/uL (0.21-1.20); NEUTROPHILS ABSOLUTE (CALC) 18.75 10/3/uL (2.02-8.40); PLATELET ESTIMATE ADQ (ADEQUATE); SEGMENTED NEUTROPHIL (0) 79 %; TOTAL NUCLEATED CELLS 100
[2016-11-14 07:34] LABS: OVALOCYTES 1+ (3-10/OIF) (0-2/OIF)
[2016-11-15 06:00] LABS: HEMATOCRIT 23.6 % (36.0-48.0); HEMOGLOBIN 7.3 g/dL (12.0-16.0); MEAN CORPUS HGB CONC 30.9 g/dL (32.0-36.0); MEAN CORPUSCULAR HEMOGLOB 26.6 pg (26.0-34.0); MEAN CORPUSCULAR VOLUME 86.1 fL (80-100); MEAN PLATELET VOLUME 9.9 fL (9.2-13.0); PLATELET COUNT 280 10/3/uL (150-400); RBC DISTRIBUTION WIDTH 18.2 % (12.0-16.0); RED CELL COUNT 2.74 10/6/uL (4.0-5.6); WHITE BLOOD CELLS 21.1 10/3/uL (4.5-10.5)
[2016-11-15 06:04] LABS: MANUAL DIFF YES %
[2016-11-15 06:11] LABS: CALCIUM, SERUM 7.5 MG/DL (8.5-10.4); CHLORIDE, SERUM 115 MMOL/L (96-112); CREATININE 1.87 MG/DL (0.55-1.02); GFR AFRICAN AMERICAN 38 ML/MIN (>=60); GFR NON AFRICAN AMERICAN 33 ML/MIN (>=60); GLUCOSE, SERUM 97 MG/DL (60-99); PHOSPHORUS, SERUM 3.1 MG/DL (2.5-4.5); POTASSIUM, SERUM 4.6 MMOL/L (3.5-5.3); SODIUM, SERUM 146 MMOL/L (135-148); TRIGLYCERIDE 114 MG/DL (< 150)
[2016-11-15 06:12] LABS: BUN (BLOOD UREA NITROGEN) 24 MG/DL (6-23); CO2 (CARBON DIOXIDE) 20 MMOL/L (24-34)
[2016-11-15 07:43] LABS: ANISOCYTOSIS 1+ (5-10/OIF) (0-5/OIF); BAND NEUTROPHILS 16 %; EOSINOPHILS 3 %; EOSINOPHILS ABSOLUTE (CALC) 0.63 10/3/uL (0.0-0.53); IMMATURE GRANS ABSOLUTE (CALC) 0.21 10/3/uL (0.0-0.11); LYMPHOCYTES 4 %; LYMPHOCYTES ABSOLUTE (CALC) 0.84 10/3/uL (0.67-4.30); METAMYELOCYTES 1 %; MONOCYTES 7 %; MONOCYTES ABSOLUTE (CALC) 1.48 10/3/uL (0.21-1.20); NEUTROPHILS ABSOLUTE (CALC) 17.94 10/3/uL (2.02-8.40); PLATELET ESTIMATE ADQ (ADEQUATE); SEGMENTED NEUTROPHIL (0) 69 %; TOTAL NUCLEATED CELLS 100; TOXIC GRANULATION SLT; VACUOLATED NEUTROPHILES OCC
[2016-11-15 07:44] LABS: HELMET CELLS OCC (0-2/OIF); HYPOCHROMIA 1+ (3-10/OIF) (0-2/OIF); POLYCHROMASIA 1+ (2-5/OIF) (0-1/OIF); TARGET CELLS OCC (1-2/OIF) (0-1/OIF); TEARDROP SHAPED RBCS OCC (0-2/OIF)
[2016-11-15 16:43] LABS: HEMATOCRIT 22.2 % (36.0-48.0)
[2016-11-15 16:48] LABS: HEMOGLOBIN 6.9 g/dL (12.0-16.0)
[2016-11-15 17:16] LABS: PROCALCITONIN 42.91 ng/mL (<0.5)
[2016-11-15 17:20] LABS: PREALBUMIN 5.5 MG/DL (17.0-43.0)
[2016-11-15 17:42] LABS: SED RATE 60 MM/HR (0-20)
[2016-11-16 13:42] LABS: HEMATOCRIT 25.2 % (36.0-48.0); HEMOGLOBIN 8.3 g/dL (12.0-16.0); MEAN CORPUS HGB CONC 32.9 g/dL (32.0-36.0); MEAN CORPUSCULAR HEMOGLOB 27.9 pg (26.0-34.0); MEAN CORPUSCULAR VOLUME 84.6 fL (80-100); MEAN PLATELET VOLUME 9.6 fL (9.2-13.0); PLATELET COUNT 225 10/3/uL (150-400); RBC DISTRIBUTION WIDTH 16.4 % (12.0-16.0); RED CELL COUNT 2.98 10/6/uL (4.0-5.6); WHITE BLOOD CELLS 19.4 10/3/uL (4.5-10.5)
[2016-11-16 13:44] LABS: MANUAL DIFF YES %
[2016-11-16 14:01] LABS: CALCIUM, SERUM 7.5 MG/DL (8.5-10.4); CHLORIDE, SERUM 116 MMOL/L (96-112); CO2 (CARBON DIOXIDE) 21 MMOL/L (24-34); GFR AFRICAN AMERICAN 42 ML/MIN (>=60); GFR NON AFRICAN AMERICAN 37 ML/MIN (>=60); SODIUM, SERUM 145 MMOL/L (135-148)
[2016-11-16 14:02] LABS: BUN (BLOOD UREA NITROGEN) 20 MG/DL (6-23); GLUCOSE, SERUM 131 MG/DL (60-99); PHOSPHORUS, SERUM 1.8 MG/DL (2.5-4.5); POTASSIUM, SERUM 3.4 MMOL/L (3.5-5.3)
[2016-11-16 14:05] LABS: BAND NEUTROPHILS 1 %; LYMPHOCYTES 5 %; LYMPHOCYTES ABSOLUTE (CALC) 0.97 10/3/uL (0.67-4.30); METAMYELOCYTES 1 %; MONOCYTES 3 %; MONOCYTES ABSOLUTE (CALC) 0.58 10/3/uL (0.21-1.20); NEUTROPHILS ABSOLUTE (CALC) 17.85 10/3/uL (2.02-8.40); SEGMENTED NEUTROPHIL (0) 90 %; TOTAL NUCLEATED CELLS 100
[2016-11-16 14:06] LABS: PLATELET ESTIMATE ADQ (ADEQUATE); VACUOLATED NEUTROPHILES OCC
[2016-11-16 14:07] LABS: ANISOCYTOSIS 1+ (5-10/OIF) (0-5/OIF); OVALOCYTES 1+ (3-10/OIF) (0-2/OIF); SCHISTOCYTES OCC (0-2/OIF)
[2016-11-17 06:18] LABS: HEMATOCRIT 24.8 % (36.0-48.0); HEMOGLOBIN 8.4 g/dL (12.0-16.0); MEAN CORPUS HGB CONC 33.9 g/dL (32.0-36.0); MEAN CORPUSCULAR VOLUME 82.7 fL (80-100); MEAN PLATELET VOLUME 9.2 fL (9.2-13.0); PLATELET COUNT 210 10/3/uL (150-400); RBC DISTRIBUTION WIDTH 17.4 % (12.0-16.0); WHITE BLOOD CELLS 15.2 10/3/uL (4.5-10.5)
[2016-11-17 06:20] LABS: MANUAL DIFF YES %
[2016-11-17 06:43] LABS: A/G RATIO 0.4 (0.7-1.9); ALBUMIN 1.8 G/DL (3.5-5.0); BUN (BLOOD UREA NITROGEN) 18 MG/DL (6-23); CALCIUM, SERUM 7.8 MG/DL (8.5-10.4); CHLORIDE, SERUM 115 MMOL/L (96-112); CO2 (CARBON DIOXIDE) 19 MMOL/L (24-34); CREATININE 1.35 MG/DL (0.55-1.02); GFR AFRICAN AMERICAN 56 ML/MIN (>=60); GFR NON AFRICAN AMERICAN 48 ML/MIN (>=60); GLOBULIN 4.4 G/DL (2.5-4.1); GLUCOSE, SERUM 112 MG/DL (60-99); POTASSIUM, SERUM 3.5 MMOL/L (3.5-5.3); SGOT(AST) 14 U/L (5-40); SODIUM, SERUM 144 MMOL/L (135-148); TOTAL BILIRUBIN 0.3 MG/DL (0-1.2); TOTAL PROTEIN 6.2 G/DL (6.0-8.5)
[2016-11-17 06:45] LABS: ALKALINE PHOSPHATASE 193 U/L (45-117); PHOSPHORUS, SERUM 2.6 MG/DL (2.5-4.5); SGPT(ALT) < 6 U/L (5-65)
[2016-11-17 07:41] LABS: BAND NEUTROPHILS 3 %; EOSINOPHILS 1 %; EOSINOPHILS ABSOLUTE (CALC) 0.15 10/3/uL (0.0-0.53); LYMPHOCYTES 1 %; LYMPHOCYTES ABSOLUTE (CALC) 0.15 10/3/uL (0.67-4.30); MONOCYTES 2 %; NEUTROPHILS ABSOLUTE (CALC) 14.59 10/3/uL (2.02-8.40); SEGMENTED NEUTROPHIL (0) 93 %; TOTAL NUCLEATED CELLS 100
[2016-11-17 07:42] LABS: ANISOCYTOSIS 1+ (5-10/OIF) (0-5/OIF); BURR CELLS 1+ (3-10/OIF) (0-2/OIF); PLATELET ESTIMATE ADQ (ADEQUATE); POIKILOCYTOSIS 1+ (5-10/OIF) (0-5/OIF); POLYCHROMASIA 1+ (2-5/OIF) (0-1/OIF)
[2016-11-18 04:12] LABS: HEMATOCRIT 23.8 % (36.0-48.0); HEMOGLOBIN 7.9 g/dL (12.0-16.0); MEAN CORPUS HGB CONC 33.2 g/dL (32.0-36.0); MEAN CORPUSCULAR VOLUME 84.4 fL (80-100); MEAN PLATELET VOLUME 9.6 fL (9.2-13.0); PLATELET COUNT 212 10/3/uL (150-400); RBC DISTRIBUTION WIDTH 17.4 % (12.0-16.0); RED CELL COUNT 2.82 10/6/uL (4.0-5.6)
[2016-11-18 04:13] LABS: MANUAL DIFF YES %; WHITE BLOOD CELLS 9.1 10/3/uL (4.5-10.5)
[2016-11-18 04:25] LABS: BUN (BLOOD UREA NITROGEN) 19 MG/DL (6-23); CALCIUM, SERUM 7.2 MG/DL (8.5-10.4); CHLORIDE, SERUM 113 MMOL/L (96-112); CO2 (CARBON DIOXIDE) 19 MMOL/L (24-34); CREATININE 1.21 MG/DL (0.55-1.02); GFR AFRICAN AMERICAN 64 ML/MIN (>=60); GFR NON AFRICAN AMERICAN 55 ML/MIN (>=60); GLUCOSE, SERUM 98 MG/DL (60-99); PHOSPHORUS, SERUM 2.7 MG/DL (2.5-4.5); POTASSIUM, SERUM 3.4 MMOL/L (3.5-5.3); SODIUM, SERUM 142 MMOL/L (135-148)
[2016-11-18 04:34] LABS: ANISOCYTOSIS 1+ (5-10/OIF) (0-5/OIF); BAND NEUTROPHILS 10 %; LYMPHOCYTES 7 %; LYMPHOCYTES ABSOLUTE (CALC) 0.64 10/3/uL (0.67-4.30); MICROCYTES 1+ (5-10/OIF) (0-5/OIF); MONOCYTES 10 %; MONOCYTES ABSOLUTE (CALC) 0.91 10/3/uL (0.21-1.20); NEUTROPHILS ABSOLUTE (CALC) 7.55 10/3/uL (2.02-8.40); PLATELET ESTIMATE ADQ (ADEQUATE); SEGMENTED NEUTROPHIL (0) 73 %; TOTAL NUCLEATED CELLS 100
[2016-11-18 06:42] LABS: PROCALCITONIN 8.85 ng/mL (<0.5)
[2016-11-19 06:37] LABS: HEMATOCRIT 23.9 % (36.0-48.0); HEMOGLOBIN 7.7 g/dL (12.0-16.0); MEAN CORPUS HGB CONC 32.2 g/dL (32.0-36.0); MEAN CORPUSCULAR HEMOGLOB 27.3 pg (26.0-34.0); MEAN CORPUSCULAR VOLUME 84.8 fL (80-100); MEAN PLATELET VOLUME 9.5 fL (9.2-13.0); PLATELET COUNT 236 10/3/uL (150-400); RBC DISTRIBUTION WIDTH 17.7 % (12.0-16.0); RED CELL COUNT 2.82 10/6/uL (4.0-5.6); WHITE BLOOD CELLS 11.3 10/3/uL (4.5-10.5)
[2016-11-19 06:38] LABS: MANUAL DIFF YES %
[2016-11-19 06:50] LABS: PHOSPHORUS, SERUM 2.5 MG/DL (2.5-4.5)
[2016-11-19 06:57] LABS: BAND NEUTROPHILS 6 %; LYMPHOCYTES 7 %; LYMPHOCYTES ABSOLUTE (CALC) 0.79 10/3/uL (0.67-4.30); MONOCYTES 6 %; MONOCYTES ABSOLUTE (CALC) 0.68 10/3/uL (0.21-1.20); NEUTROPHILS ABSOLUTE (CALC) 9.83 10/3/uL (2.02-8.40); SEGMENTED NEUTROPHIL (0) 81 %; TOTAL NUCLEATED CELLS 100
[2016-11-19 06:58] LABS: ANISOCYTOSIS 1+ (5-10/OIF) (0-5/OIF); PLATELET ESTIMATE ADQ (ADEQUATE); POLYCHROMASIA 1+ (2-5/OIF) (0-1/OIF)
[2016-11-20 06:51] LABS: HEMATOCRIT 24.9 % (36.0-48.0); HEMOGLOBIN 7.8 g/dL (12.0-16.0); MEAN CORPUS HGB CONC 31.3 g/dL (32.0-36.0); MEAN CORPUSCULAR HEMOGLOB 26.7 pg (26.0-34.0); MEAN CORPUSCULAR VOLUME 85.3 fL (80-100); RED CELL COUNT 2.92 10/6/uL (4.0-5.6); WHITE BLOOD CELLS 10.2 10/3/uL (4.5-10.5)
[2016-11-20 06:56] LABS: MANUAL DIFF YES %; PLATELET COUNT 318 10/3/uL (150-400)
[2016-11-20 07:03] LABS: BUN (BLOOD UREA NITROGEN) 18 MG/DL (6-23); CALCIUM, SERUM 7.5 MG/DL (8.5-10.4); CHLORIDE, SERUM 111 MMOL/L (96-112); CO2 (CARBON DIOXIDE) 18 MMOL/L (24-34); GFR AFRICAN AMERICAN 72 ML/MIN (>=60); GFR NON AFRICAN AMERICAN 62 ML/MIN (>=60); POTASSIUM, SERUM 3.8 MMOL/L (3.5-5.3); SODIUM, SERUM 142 MMOL/L (135-148)
[2016-11-20 07:04] LABS: GLUCOSE, SERUM 74 MG/DL (60-99); PHOSPHORUS, SERUM 3.7 MG/DL (2.5-4.5)
[2016-11-20 07:13] LABS: ANISOCYTOSIS 1+ (5-10/OIF) (0-5/OIF); EOSINOPHILS 3 %; EOSINOPHILS ABSOLUTE (CALC) 0.31 10/3/uL (0.0-0.53); LYMPHOCYTES 6 %; LYMPHOCYTES ABSOLUTE (CALC) 0.61 10/3/uL (0.67-4.30); MONOCYTES 6 %; MONOCYTES ABSOLUTE (CALC) 0.61 10/3/uL (0.21-1.20); NEUTROPHILS ABSOLUTE (CALC) 8.67 10/3/uL (2.02-8.40); PLATELET ESTIMATE ADQ (ADEQUATE); SEGMENTED NEUTROPHIL (0) 85 %; TOTAL NUCLEATED CELLS 100
[2016-11-21 05:39] LABS: BUN (BLOOD UREA NITROGEN) 17 MG/DL (6-23); CALCIUM, SERUM 7.9 MG/DL (8.5-10.4); CHLORIDE, SERUM 113 MMOL/L (96-112); CO2 (CARBON DIOXIDE) 18 MMOL/L (24-34); CREATININE 1.11 MG/DL (0.55-1.02); GFR AFRICAN AMERICAN 71 ML/MIN (>=60); GFR NON AFRICAN AMERICAN 61 ML/MIN (>=60); GLUCOSE, SERUM 74 MG/DL (60-99); PHOSPHORUS, SERUM 3.2 MG/DL (2.5-4.5); POTASSIUM, SERUM 3.9 MMOL/L (3.5-5.3); SODIUM, SERUM 142 MMOL/L (135-148)
[2016-11-21 05:55] LABS: HEMOGLOBIN 8.6 g/dL (12.0-16.0); MEAN CORPUSCULAR HEMOGLOB 26.5 pg (26.0-34.0); MEAN PLATELET VOLUME 10.4 fL (9.2-13.0); NUCLEATED RED BLOOD CELLS 0.2 /100WBC (0-0); PLATELET COUNT 286 10/3/uL (150-400); RBC DISTRIBUTION WIDTH 18.2 % (12.0-16.0); RED CELL COUNT 3.25 10/6/uL (4.0-5.6); WHITE BLOOD CELLS 9.6 10/3/uL (4.5-10.5)
[2016-11-21 06:02] LABS: MANUAL DIFF YES %; MEAN CORPUS HGB CONC 29.7 g/dL (32.0-36.0); MEAN CORPUSCULAR VOLUME 89.2 fL (80-100)
[2016-11-21 07:47] LABS: ANISOCYTOSIS 1+ (5-10/OIF) (0-5/OIF); BAND NEUTROPHILS 4 %; LYMPHOCYTES 14 %; LYMPHOCYTES ABSOLUTE (CALC) 1.34 10/3/uL (0.67-4.30); METAMYELOCYTES 1 %; MONOCYTES 10 %; MONOCYTES ABSOLUTE (CALC) 0.96 10/3/uL (0.21-1.20); PLATELET ESTIMATE ADQ (ADEQUATE); SEGMENTED NEUTROPHIL (0) 71 %; TOTAL NUCLEATED CELLS 100
[2016-11-21 07:48] LABS: SCHISTOCYTES OCC (0-2/OIF)
[2017-04-19] MEDS ORDERED: FERROUS SULF325 M1 PO (16:00)
[2017-04-19] MEDS ORDERED: KLOR-CON 1010 MEQ PO (16:01)
[2017-04-19] MEDS ORDERED: REG5 PO (16:01)
[2017-04-19] MEDS ORDERED: PROZAC40 MG PO (16:03)
[2017-04-19] MEDS ORDERED: VITC500 PO (16:03)
[2017-04-19] MEDS ORDERED: CLARIT10 PO (16:04)
[2017-04-19] MEDS ORDERED: JANTOVEN1 MG PO (16:04)
[2017-04-19] MEDS ORDERED: L20 PO (16:05)
[2017-04-19] MEDS ORDERED: PRILO PO (16:05)
[2017-04-19] MEDS ORDERED: HALF81 PO (16:05)
[2017-04-24] MEDS ORDERED: PROTONIX PO (14:34)
[2017-04-24] MEDS ORDERED: FESO4 PO (14:37)
[2017-04-24] MEDS ORDERED: P10 (14:39)
== END 2016-11-21 21:32 | DRG 330 ==
LOC: ER 16:03 → 7NO 19:31
PROVIDERS: Emergency Medicine; Internal Medicine; Internal Medicine Gastroenterology; Specialist
PROC: 0DBF0ZZ Excision of Right Large Intestine, Open Approach (ICD-10-PCS; principal; 2016-11-13 16:00)
PROC: 0FB20ZX Excision of Left Lobe Liver, Open Approach, Diagnostic (ICD-10-PCS; 2016-11-13 16:00)
PROC: 02HV33Z Insertion of Infusion Device into Superior Vena Cava, Percutaneous Approach (ICD-10-PCS; 2016-11-15)
PROC: 4A02X4A Measurement of Cardiac Electrical Activity, Guidance, External Approach (ICD-10-PCS; 2016-11-15)
PROC: 30233N1 Transfusion of Nonautologous Red Blood Cells into Peripheral Vein, Percutaneous Approach (ICD-10-PCS; 2016-11-16)
DX: K56.60 Unspecified intestinal obstruction (principal); N17.9 Acute kidney failure, unspecified; M32.9 Systemic lupus erythematosus, unspecified; E87.1 Hypo-osmolality and hyponatremia; N18.3 Chronic kidney disease, stage 3 (moderate); E86.0 Dehydration; Z86.718 Personal history of other venous thrombosis and embolism; F79 Unspecified intellectual disabilities; D63.1 Anemia in chronic kidney disease; I34.0 Nonrheumatic mitral (valve) insufficiency; F70 Mild intellectual disabilities; K56.2 Volvulus
CPT/HCPCS: 36415; 36569; 71010; 74000; 74020; 74176; 74250; 76705; 80048; 80053; 81001; 82248; 82272; 82330; 82607; 82728; 82962; 82977; 83540; 83550; 83690; 83735; 84100; 84132; 84134; 84145; 84443; 84478; 84703; 85014; 85018; 85025; 85045; 85610; 85652; 85730; 86255; 86850; 86870; 86880; 86900; 86901; 86920; 86922; 88307; 88313; 89055; 96374; 96375; 97110-GP; 97116-GP; 97161-GP; 97530-GP; 99285; A9270-GY; C1751; G8978-CL-GP; G8979-CK-GP; J0690; J0694; J1170; J2250; J2370; J2405; J2550; J2710; J2765; J3010; P9016; P9045; P9047

== ENCOUNTER 2016-12-05 13:06 | Inpatient (IN) | payer OTHER ==
--- NOTE | ~2016-12-05 | HP ---
History And Physical [facility] [address] [place]. [address] NAME: AMAIRANI ROY : 73 STATUS : ADM IN [facility]#: [id number] AGE: 41 ADM/REG DATE : 12/05/16 MR#: [id number] REPORT SERV DATE: 12/06/16 DICTATED BY: MARTIN MEDINA DATE: 12/05/16 REPORT STATUS : Draft TRANSCRIBED BY: MODL DATE: 12/05/16 DATE OF ADMISSION: 12/05/2016 POINT OF ENTRY: [facility] Emergency Department. CHIEF COMPLAINT: Dysphagia, not eating, malnutrition. HISTORY OF PRESENT ILLNESS: Ms. 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 The patient states that since her discharge from our facility on 11/21/2016, she has had difficulties swallowing solid food. She states that she feels that they get stuck in her throat and then starts to gag and has nausea and vomiting. She states that she is able to tolerate liquids; however, her caregiver who is at bedside does report some instances where she is even having trouble taking some of her pills. The patient also generally has just not been hungry and has had a poor appetite. The caregiver has been successful in pushing liquids but the patient is resistant even to taking full liquids such as soups or shakes. She also does report even episodes of nausea and vomiting as well as some diarrhea. Initial evaluation in the emergency department with CT scan of the abdomen and pelvis shows two separate fluid collections in the intraabdominal area, one posterior to the uterus and one in the subcapsular region near the liver concerning for likely postoperative fluid collections. There is some iliac lymphadenopathy. Otherwise, no acute intraabdominal pathology. Labs notable for albumin level of 1.6 as well as initial glucose of 52, on recheck was 43. She received an amp of D50 as well as placed on D5 fluids. She has some chronic anemia that is unchanged and has evidence of a urinary tract infection. She was subsequently admitted to the Hospitalist Service for further evaluation and management. In addition to the above-mentioned complaints, she states that she occasionally has troubles with shortness of breath but denies any recent fevers, night sweats, chills, chest pain, abdominal pain, dysuria, melena, hematochezia, hemoptysis, or hematemesis. . REVIEW OF SYSTEMS: A comprehensive review of systems is otherwise negative unless listed in the history of present illness. PREVIOUS MEDICAL HISTORY: 1. Lupus, on CellCept. 2. History of llee-hd-txrmvrir mental retardation by report. 3. History of DVTs in the past by report. 4. Chronic anemia. 5. 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 [address] NAME: AMAIRANI ROY : 73 STATUS : ADM IN [facility]#: [id number] AGE: 41 ADM/REG DATE : 12/05/16 MR#: [id number] REPORT SERV DATE: 12/06/16 DICTATED BY: MARTIN MEDINA DATE: 12/05/16 REPORT STATUS : Draft TRANSCRIBED BY: ARCELIA DATE: 12/05/16 hemicolectomy. 6. Chronic sacral wounds. PAST SURGICAL HISTORY: Cholecystectomy with a right hemicolectomy. ALLERGIES: SULFA DRUGS. HOME MEDICATIONS: 1. Tylenol 325 mg q.4 hours p.r.n. 2. Aspirin 81 mg daily. 3. Vitamin D 2000 units daily. 4. Lasix 20 mg daily. 5. Reglan 5 mg a.c. and bedtime. 6. CellCept 500 mg daily. 7. Endocet 1 tab q.8 hours p.r.n. 8. Phenergan 25 mg q.4 hours p.r.n. 9. Zoloft 150 mg daily. SOCIAL HISTORY: Denies any tobacco, alcohol, or illicits. Was formerly living in [place] and has a caregiver but now is at [facility] postoperatively. FAMILY MEDICAL HISTORY: Unknown. LABS AND IMAGIN. White count 6.1, hemoglobin 7.2, hematocrit 23.8, and platelet count is 435. 2. Sodium 146, potassium 3.5, chloride 112, carbon dioxide 20, BUN 12, and creatinine 1.16. Glucose is 52, on recheck is now 43. Calcium is 7.3, protein is 8.0, albumin is 1.6, bilirubin is 0.3, ALT is 11, AST is 18, and alkaline phosphatase is 141. 3. Lactic acid 0.7. 4. Occult stool is negative. 5. Urinalysis, specific gravity is 1.014. Positive ketones with trace leukocyte esterase and 18 white blood cells per high-powered field. 6. CT scan of the abdomen and pelvis, a new subcapsular fluid collection adjacent to the inferior tip of the right hepatic lobe measuring 11 mm in thickness, may represent a sterile postoperative collection. There is also a 4.5 x 3.7 cm fluid collection posterior to the uterus that does not appear significantly inflamed, all suggesting possible sterile postoperative collection, thickened appearance of urinary bladder with surrounding edema, clinical correlation recommended. Status post interval right hemicolectomy with ileocolonic anastomosis. No bowel obstruction pattern demonstrated. Bilateral iliac chain lymphadenopathy as described. Trace bilateral pleural fluid, bilateral lower lobe atelectasis. PHYSICAL EXAMINATION: VITAL SIGNS: Temperature is 98.2 degrees Fahrenheit, pulse is 83, respirations are 22, saturating 98% on room air. Blood pressure 112/81, on recheck now blood pressure is 123/62. Heart rate of 87. Saturating 100% on 2 L of cannula. GENERAL: The patient is awake, alert, in no distress, and resting comfortably. She is a History And Physical [address] [address] NAME: AMAIRANI ROY : 73 STATUS : ADM IN [facility]#: [id number] AGE: 41 ADM/REG DATE : 12/05/16 MR#: [id number] REPORT SERV DATE: 12/06/16 DICTATED BY: MARTIN MEDINA DATE: 12/05/16 REPORT STATUS : Draft TRANSCRIBED BY: MODL DATE: 12/05/16 well-developed, well-nourished female, caregiver is at bedside. HEENT: Atraumatic and normocephalic. Moist mucous membranes. Pupils are equal, round, and reactive to light and accommodation. Extraocular eye movements intact. No scleral icterus. NECK: No jugular venous distention. No carotid bruits. CARDIAC: Regular rate and rhythm. No murmurs or gallops. Normal S1, S2. LUNGS: Clear to auscultation bilaterally. No wheezes, rhonchi, or crackles. ABDOMEN: Mildly tender to palpation over all quadrants. No rebound, guarding, or rigidity. The patient's laparoscopic incisions appear to be clean, dry, intact without any obvious purulent drainage. EXTREMITIES: Warm and perfused. No cyanosis, clubbing, or edema. SKIN: Warm and dry. PSYCHIATRIC: Affect appropriate. NEUROLOGIC: Alert and oriented x3. Cranial nerves 2 through 12 grossly intact. Speech is normal. Gait not assessed. ASSESSMENT: Ms. Roy is a 41-year-old female, who is approximately 3 weeks postop of a right hemicolectomy with ileocolonic anastomosis, who now presents with poor oral intake with complaints of dysphagia and odynophagia with resulting hypoglycemia and malnutrition. PROBLEM LIST: 1. Dysphagia and odynophagia concerning for possible esophageal stricture. 2. Malnutrition. 3. Hypoglycemia. 4. Urinary tract infection. 5. Chronic anemia. 6. Intraabdominal fluid collection. 7. Hypoalbuminemia. PLAN: 1. Dysphagia and odynophagia. We will place the patient on a full liquid diet as tolerated. We will consult Gastroenterology, Dr. Bauer, who saw her during her previous hospitalization for likely need for upper endoscopy to evaluate for any upper GI tract narrowing and/or obstruction. 2. Hypoglycemia. She received an amp of D50 here in the emergency department. We will place her on D5 half-normal saline with hypoglycemic protocol and frequent blood sugar checks overnight. 3. Malnutrition with hypoalbuminemia. We will consult Nutrition for assistance. We will order some Ensure shakes as requested by family. Need to address her dysphagia and odynophagia before consideration of alternative nutrition strategies and/or therapies such as tube feeds or TPN. 4. Urinary tract infection, place her on IV Rocephin. Follow up urine culture. 5. Intraabdominal fluid collections, likely represent sterile postoperative collections as mentioned by Radiology. However, we will repeat a CT scan of abdomen and pelvis at this time with IV and p.o. contrast as recommended by Radiology to better visualize these collections. Of note, she is afebrile and white count is normal. Blood cultures have been obtained. We will check a procalcitonin level, and she will be on some antibiotics for urinary tract infection. History And Physical [address] [place]. [address] NAME: AMAIRANI ROY : 73 STATUS : ADM IN [facility]#: [id number] AGE: 41 ADM/REG DATE : 12/05/16 MR#: [id number] REPORT SERV DATE: 12/06/16 DICTATED BY: MARTIN MEDINA DATE: 12/05/16 REPORT STATUS : Draft TRANSCRIBED BY: MODL DATE: 12/05/16 6. Status post right hemicolectomy and ileocolonic anastomosis. CT of the abdomen and pelvis without evidence of any bowel obstruction, we will continue to monitor. 7. DVT prophylaxis, Lovenox subcu. CODE STATUS: The patient wished to be full code. BHARATHI/ARCELIA Martin Medina MD / [id number] CC: MD Js Tinsley II, M.D.
--- NOTE | ~2016-12-05 | EGD ---
EGD REPORT [facility] [address] [place] [address] NAME: AMAIRANI ROY : 73 STATUS : ADM IN PAT#: [id number] AGE: 41 ADM/REG DATE : 12/05/16 MR#: [id number] REPORT SERV DATE: 12/07/16 DICTATED BY: DATE: REPORT STATUS : Draft TRANSCRIBED BY: [employer] DATE: 12/07/16 Endoscopy Center Patient Name: Amairani Roy Date of : 1975 Attending MD: DARRICK JAMES MD Procedure Date No Time: 12/07/2016 Procedure: Upper GI endoscopy Indications: Dysphagia, Odynophagia Referring MD: ANURAG DE LA PAZ Medicines: Monitored Anesthesia Care Complications: No immediate complications. Procedure: Pre-Anesthesia Assessment: - ASA Grade Assessment: III - A patient with severe systemic disease. After obtaining informed consent, the endoscope was passed under direct vision. Throughout the procedure, the patient's blood pressure, pulse, and oxygen saturations were monitored continuously. The GIF [id number] was introduced through the mouth, and advanced to the second part of duodenum. The upper GI endoscopy was accomplished without difficulty. The patient tolerated the procedure well. Findings: Many superficial esophageal ulcers with no bleeding and no stigmata of recent bleeding were found in the middle third of the esophagus. Biopsies were taken with a cold forceps for histology, immunostain, and viral culture. The appearance is consistent with pill ulcer versus viral causes. A gaping lower esophageal sphincter was found. The lower third of the esophagus was normal. There is no endoscopic evidence of Albright's esophagus, stenosis or varices in the entire esophagus. The entire examined stomach was normal. There is no endoscopic evidence of mucosal abnormalities, ulceration or varices in the entire examined stomach. The examined duodenum was normal. There is no endoscopic evidence of mucosal abnormalities, stenosis or ulceration in the entire examined duodenum. The cardia and gastric fundus were otherwise normal on retroflexion. Impression: - Non-bleeding esophageal ulcers. Biopsied. - Gaping lower esophageal sphincter. - Normal lower third of esophagus. - Normal stomach. EGD REPORT [address] [address] NAME: AMAIRANI ROY : [birth year] STATUS : ADM IN [facility]#: [id number] AGE: 41 ADM/REG DATE : 12/05/16 MR#: [id number] REPORT SERV DATE: 12/07/16 DICTATED BY: DATE: REPORT STATUS : Draft TRANSCRIBED BY: [employer] DATE: 12/07/16 - Normal examined duodenum. Recommendation: - Return patient to hospital [facility] for ongoing care. - Continue present medications. - Return to previous diet. - Await pathology results. - Symptomatic therapy awaiting biopsies. Pill precautions. - The findings and recommendations were discussed with the patient's family. Procedure Code(s): --- Professional --- 65797, Esophagogastroduodenoscopy, flexible, transoral; with biopsy, single or multiple Diagnosis Code(s): --- Professional --- K22.10, Ulcer of esophagus without bleeding K22.8, Other specified diseases of esophagus R13.10, Dysphagia, unspecified CPT copyright 2013 [employer]. All rights reserved. The codes documented in this report are preliminary and upon insole presser review may be revised to meet current compliance requirements. DARRICK JAMES MD 12/07/2016 11:44 AM This report has been signed electronically. Number of Addenda: 0 Note Initiated On: 12/07/2016 8:13 AM Scope Withdrawal Time 0 hours 0 minutes 0 seconds [id number] [id number]
--- NOTE | ~2016-12-05 | CN ---
Consultation Report [facility] [address] [place]. [address] NAME: AMAIRANI ROY : 73 STATUS : ADM IN PAT#: [id number] AGE: 41 ADM/REG DATE : 12/05/16 MR#: [id number] REPORT SERV DATE: 12/08/16 DICTATED BY: PEYTON VALENCIA DATE: 12/06/16 REPORT STATUS : Draft TRANSCRIBED BY: MODL DATE: 12/06/16 CONSULTATION DATE OF CONSULTATION: 12/06/2016 REASON FOR EVALUATION: Odynophagia and dysphagia. HISTORY OF PRESENT ILLNESS: Ms. Roy is a 41-year-old female with multiple medical problems including lupus on CellCept, and a recent surgery on 11/14/2016 for cecal volvulus complicated by small bowel obstruction. During that surgery, she underwent liver biopsy. She is admitted now with poor p.o. intake. Symptoms of odynophagia and dysphagia were reported by her caregivers, however, on trial of cranberry juice, apple juice, and grits, she said she has no pain on swelling or abdominal pain. She does report "gagging." Her p.o. intake has been diminished. She has had vomiting. At the present time, she denies abdominal pain. She has passed flatus and had a bowel movement, which she states was normal. She has had no fevers or chills. Imaging done with no contrast in the emergency room on admission demonstrates fluid collections, which were suspected to be sterile. Further evaluation is planned. The patient reports no hematemesis, melena, or hematochezia. PAST MEDICAL HISTORY: 1. Lupus. 2. Immunosuppression. 3. History of a cecal volvulus or bascules, status post resection. 4. History of DVT. 5. History of mental retardation by history. 6. Status post cholecystectomy. 7. Sacral decubitus ulcers. 8. Elevated alkaline phosphatase with recent interrupted liver biopsy demonstrating mild to moderate steatosis with focal pericellular and periportal fibrosis. 9. Adenomatous colon polyp identified at time of resection, measuring 7 cm in the ascending colon, no prior colonoscopy. MEDICATIONS: List includes aspirin, Rocephin, vitamin D, Lovenox, folate, metoclopramide, multivitamin, mycophenolate, pantoprazole, sertraline, and thiamine. FAMILY HISTORY: Negative for liver disease or GI malignancies. SOCIAL HISTORY: She resides at [facility] at this time, though previously in a retirement. She does not use tobacco or alcohol. PHYSICAL EXAMINATION: GENERAL: Reveals a quiet middle-aged lady resting comfortably with limited mobility. Consultation Report [address] [place]. [address] NAME: AMAIRANI ROY : 73 STATUS : ADM IN PAT#: [id number] AGE: 41 ADM/REG DATE : 12/05/16 MR#: [id number] REPORT SERV DATE: 12/08/16 DICTATED BY: PEYTON VALENCIA DATE: 12/06/16 REPORT STATUS : Draft TRANSCRIBED BY: MODL DATE: 12/06/16 VITAL SIGNS: Blood pressure 121/65, temperature 98.0, heart rate 94. SKIN: Some shallow scarring, and decubitus. HEENT: No icterus. Oropharynx, good dentition. Mucous membranes moist. No exudate. NECK: Supple. No adenopathy. CHEST: Clear to auscultation. CARDIAC: Regular rate and rhythm. Normal S1, S2. ABDOMEN: A small wound in the left upper quadrant is bandaged, well-healed midline incision. Normal bowel sounds. Soft without tenderness. EXTREMITIES: Warm with suggestion of contractures, which I did not test further. NEUROLOGIC: She becomes engaged and answers appropriately. DATA: Sodium 146, potassium 3.5, BUN 12, creatinine 1.16, calcium 7.3. AST 18, ALT 11, alkaline phosphatase decreased from 1200 to 141. Her previous workup included iron saturation 7%, TSH 2.0, prealbumin 5.2. Lactate 0.7. White blood cell count 6.1; hemoglobin 7.2, which is unchanged from baseline; platelets 435,000. Pro time 19, INR 1.6. Liver biopsy: Specimens reviewed as above CT scan of the abdomen performed on admission shows a subcapsular fluid collection at the right hepatic lobe measuring approximately 1 cm. There is no bile duct dilation. A metallic foreign body was noted to the left kidney suggesting a surgical clip. The distal stomach appears mildly thickened, but this is attributed to underdistention, however, this is new. She has undergone right hemicolectomy and diverticulum is noted in the descending colon. There is a 4 cm fluid collection posterior to the uterus and a contrast CT scan was suggested. IMPRESSION: 1. Poorly described symptoms, possible dysphagia or odynophagia, and the patient at risk for comfort esophagitis, reflux with attending esophageal stricture. 2. Thickened stomach on CT imaging. 3. Iron deficiency anemia. 4. Adenomatous polyp on recent surgical resection. RECOMMENDATIONS: 1. Plan an upper endoscopy in a.m. 2. Eventual elective colonoscopy. 3. Replace iron when able. 4. Agree with empiric PPI. Thank you for asking me to participate in her management. JAIME/ARCELIA Consultation Report [address] [facility] [address] [facility] [address] NAME: AMAIRANI ROY : [birth year] STATUS : ADM IN [facility]#: [id number] AGE: 41 ADM/REG DATE : 12/05/16 MR#: [id number] REPORT SERV DATE: 12/08/16 DICTATED BY: PEYTON VALENCIA DATE: 12/06/16 REPORT STATUS : Draft TRANSCRIBED BY: ARCELIA DATE: 12/06/16 Peyton Valencia M.D. / [id number] CC: MD BRAIN Tinsley II, WINIFRED
--- NOTE | ~2016-12-05 | DS ---
Discharge Summary [facility] [address] [place]. [address] NAME: AMAIRANI ROY : 73 STATUS : DIS IN PAT#: [id number] AGE: 41 ADM/REG DATE : 12/05/16 MR#: [id number] REPORT SERV DATE: 12/13/16 DICTATED BY: JOHNATHON LINDER DATE: 12/13/16 REPORT STATUS : Draft TRANSCRIBED BY: MODL DATE: 12/13/16 ADMISSION DATE: 12/05/2016 DISCHARGE DATE: 12/13/2016 CHIEF COMPLAINT: Dysphagia, not eating, malnutrition. DISCHARGE DIAGNOSES: 1. Nonbleeding esophageal ulcers with gaping lower esophageal sphincter. 2. Fever suspected due to abdominal abscess postop. 3. Hypomagnesemia. 4. Moderate malnutrition. 5. Acute kidney injury with mild metabolic acidosis, non-anion gap. 6. History of lupus. 7. Superficial abdominal wound, previous incision. 8. Anemia. 9. Dysphagia/odynophagia due to suspected viral versus pill irritation to esophagus. 10.[id number] mental retardation. HISTORY OF PRESENT ILLNESS: Please see full H and P by Dr. Forbes for details regarding initial presentation. HOSPITAL COURSE: 1. Dysphagia/odynophagia, poor p.o. intake, and malnutrition. The patient was seen by GI. She had endoscopy on 12/07/2016. It was noted she had nonbleeding esophageal ulcers which were biopsied and were negative for HSV and CMV. Concerning this may have been related to pill injury versus viral etiology. It was recommended she have pill precautions with monitoring. She does have a gaping lower esophageal sphincter. This has improved. She is started on Carafate. We recommend continuing that for now. She is currently tolerating a regular diet. 2. Intermittent fevers. The patient did have a fluid collection in her pelvis on imaging. She was on broad-spectrum antibiotics. A drain was placed with about 10 mL of purulent fluid in her pelvis. The drain has since been removed due to minimal output. Cultures were negative, although this was done on broad-spectrum antibiotics. She has completed over a week of broad-spectrum antibiotics. 3. Hypomagnesemia. This was repleted per protocol. 4. Malnutrition due to dysphagia and odynophagia. This has resolved and the patient is currently taking in a diet. 5. Mild acute kidney injury with mild non-anion gap metabolic acidosis. This has resolved with her IV fluids. She will be on p.o. bicarb for the next few days to help with her metabolic acidosis. 6. History of lupus. Continue her CellCept. 7. Superficial wound at site of previous abdominal incision. This culture was positive for MRSA, although this is not draining. It does not appear infected. Continue local wound care. 8. Mild anemia. Hemoglobin is 7.7 at discharge. This has been stable. 9. 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 [address] NAME: AMAIRANI ROY : 73 STATUS : DIS IN PAT#: [id number] AGE: 41 ADM/REG DATE : 12/05/16 MR#: [id number] REPORT SERV DATE: 12/13/16 DICTATED BY: JOHNATHON LINDER DATE: 12/13/16 REPORT STATUS : Draft TRANSCRIBED BY: ARCELIA DATE: 12/13/16 post right colectomy during previous admission. Continue rehab stay. The patient will be discharged to rehab today. Surgery did follow along with us during her hospitalization. DISPOSITION: SNF. DISCHARGE MEDICATIONS: Vitamin D; Reglan 5 mg p.o. before meals and at bedtime; CellCept 500 mg daily; Zoloft 150 mg daily; Carafate 1 g p.o. before meals and at bedtime; sodium bicarb 1300 mg p.o. b.i.d. for three more days; Tylenol p.r.n.; Mylanta p.r.n.; [place] p.r.n.; Zofran p.r.n.; Phenergan p.r.n.; magnesium oxide 800 mg p.o. for the next 5 days; aspirin 81 mg daily; Protonix 40 mg p.o. b.i.d., GI has recommended lifelong PPI use. This may be able to be tapered up daily depending on progress. PERTINENT LABORATORY DATA: At time of discharge, 12/11/2016: CBC was notable for white blood cell count of 7.6, hemoglobin 7.7, platelet count of 287. On day of discharge, BMP: Serum sodium 136, potassium 5.2, chloride 107, bicarb 20, creatinine 0.98, glucose 90, calcium 7.2, magnesium 1.5, phosphorus 2.6. CT of the abdomen and pelvis with contrast on 12/05/2016, impression: 1. Fluid collections are present in the pelvis, approximately 3 are defined, and these may represent postsurgical seromas or resolving hematomas. Abscesses cannot be excluded, although no gas is currently identified within the collection to specifically suggest abscess. 2. Stable subcapsular collection along the lateral margin of the inferior right hepatic lobe. 3. Very minimal bibasilar atelectasis and right basal pleural fluid. 4. Mild prominence of the renal collecting system, minimal metallic foreign bodies present in the medial left lower kidney. 5. Cholecystectomy. 6. Partial colectomy. 7. Stable pelvic adenopathy. 8. No significant change otherwise. Time spent on this discharge is greater than 30 minutes. DNK/MODL Johnathon Linder MD / [id number]
[2016-12-05 09:50] LABS: HEMATOCRIT 23.7 % (36.0-48.0); HEMOGLOBIN 7.2 g/dL (12.0-16.0); MEAN CORPUS HGB CONC 30.4 g/dL (32.0-36.0); MEAN CORPUSCULAR HEMOGLOB 26.5 pg (26.0-34.0); MEAN CORPUSCULAR VOLUME 87.1 fL (80-100); PLATELET COUNT 394 10/3/uL (150-400); RBC DISTRIBUTION WIDTH 18.9 % (12.0-16.0); RED CELL COUNT 2.72 10/6/uL (4.0-5.6)
[2016-12-05 09:52] LABS: MANUAL DIFF YES %; WHITE BLOOD CELLS 6.3 10/3/uL (4.5-10.5)
[2016-12-05 10:07] LABS: ALBUMIN 1.6 G/DL (3.5-5.0); BUN (BLOOD UREA NITROGEN) 13 MG/DL (6-23); CALCIUM, SERUM 7.3 MG/DL (8.5-10.4); CHLORIDE, SERUM 111 MMOL/L (96-112); CREATININE 1.15 MG/DL (0.55-1.02); GFR AFRICAN AMERICAN 68 ML/MIN (>=60); GFR NON AFRICAN AMERICAN 59 ML/MIN (>=60); POTASSIUM, SERUM 3.4 MMOL/L (3.5-5.3); SGOT(AST) 18 U/L (5-40); SGPT(ALT) 6 U/L (5-65); SODIUM, SERUM 145 MMOL/L (135-148); TOTAL BILIRUBIN 0.3 MG/DL (0-1.2)
[2016-12-05 10:08] LABS: A/G RATIO 0.3 (0.7-1.9); ALKALINE PHOSPHATASE 137 U/L (45-117); CO2 (CARBON DIOXIDE) 20 MMOL/L (24-34); GLOBULIN 6.1 G/DL (2.5-4.1); GLUCOSE, SERUM 55 MG/DL (60-99); TOTAL PROTEIN 7.7 G/DL (6.0-8.5)
[2016-12-05 10:12] LABS: ANISOCYTOSIS 1+ (5-10/OIF) (0-5/OIF); BAND NEUTROPHILS 3 %; EOSINOPHILS 1 %; EOSINOPHILS ABSOLUTE (CALC) 0.06 10/3/uL (0.0-0.53); HYPOCHROMIA 1+ (3-10/OIF) (0-2/OIF); IMMATURE GRANS ABSOLUTE (CALC) 0.06 10/3/uL (0.0-0.11); LYMPHOCYTES 15 %; LYMPHOCYTES ABSOLUTE (CALC) 0.95 10/3/uL (0.67-4.30); METAMYELOCYTES 1 %; MONOCYTES 7 %; MONOCYTES ABSOLUTE (CALC) 0.44 10/3/uL (0.21-1.20); NEUTROPHILS ABSOLUTE (CALC) 4.79 10/3/uL (2.02-8.40); PLATELET ESTIMATE ADQ (ADEQUATE); SEGMENTED NEUTROPHIL (0) 73 %; TOTAL NUCLEATED CELLS 100
[~2016-12-05 13:06] MED LIST: ASAB PO; C5 PO; CALMOSEPTINE O2.5 OZ TOP; CELLCEPT5 PO; L20 PO; NORCO1 TA1 PO; PR25 PO; REG5 PO; VITAMIN D2000 UNIT PO; Z-PAK PO; ZOL100 PO
[2016-12-05 14:54] LABS: BASOPHILS 0.3 %; BASOPHILS ABSOLUTE 0.02 10/3/uL (0.0-0.16); EOSINOPHILS 2.1 %; EOSINOPHILS ABSOLUTE 0.13 10/3/uL (0.0-0.53); ER CBC TAT 0 Hrs 08 Mins; HEMATOCRIT 23.8 % (36.0-48.0); HEMOGLOBIN 7.2 g/dL (12.0-16.0); IMMATURE GRANULOCYTES ABSOLUTE 0.06 10/3/uL (0.0-0.11); LYMPHOCYTES 36.3 %; LYMPHOCYTES ABSOLUTE 2.23 10/3/uL (0.67-4.30); MANUAL DIFF NO %; MEAN CORPUS HGB CONC 30.3 g/dL (32.0-36.0); MEAN CORPUSCULAR HEMOGLOB 26.3 pg (26.0-34.0); MEAN CORPUSCULAR VOLUME 86.9 fL (80-100); MEAN PLATELET VOLUME 9.5 fL (9.2-13.0); MONOCYTES 17.6 %; MONOCYTES ABSOLUTE 1.08 10/3/uL (0.21-1.20); NEUTROPHILS 42.7 %; NEUTROPHILS ABSOLUTE 2.62 10/3/uL (2.02-8.40); PLATELET COUNT 435 10/3/uL (150-400); RBC DISTRIBUTION WIDTH 18.9 % (12.0-16.0); RED CELL COUNT 2.74 10/6/uL (4.0-5.6); WHITE BLOOD CELLS 6.1 10/3/uL (4.5-10.5)
[2016-12-05 15:06] LABS: A/G RATIO 0.3 (0.7-1.9); ALBUMIN 1.6 G/DL (3.5-5.0); ALKALINE PHOSPHATASE 141 U/L (45-117); BUN (BLOOD UREA NITROGEN) 12 MG/DL (6-23); CALCIUM, SERUM 7.3 MG/DL (8.5-10.4); CHLORIDE, SERUM 112 MMOL/L (96-112); CO2 (CARBON DIOXIDE) 20 MMOL/L (24-34); CREATININE 1.16 MG/DL (0.55-1.02); GFR AFRICAN AMERICAN 67 ML/MIN (>=60); GFR NON AFRICAN AMERICAN 58 ML/MIN (>=60); GLOBULIN 6.4 G/DL (2.5-4.1); GLUCOSE, SERUM 52 MG/DL (60-99); POTASSIUM, SERUM 3.5 MMOL/L (3.5-5.3); SGOT(AST) 18 U/L (5-40); SGPT(ALT) 11 U/L (5-65); SODIUM, SERUM 146 MMOL/L (135-148); TOTAL BILIRUBIN 0.3 MG/DL (0-1.2)
[2016-12-05] MEDS ORDERED: CELLCEPT5 PO (16:47)
[2016-12-05] MEDS ORDERED: L20 PO (16:47)
[2016-12-05] MEDS ORDERED: REG5 PO (16:47)
[2016-12-05] MEDS ORDERED: ASAB PO (16:47)
[2016-12-05] MEDS ORDERED: VITAMIN D1000 UNI1 PO (16:48)
[2016-12-05] MEDS ORDERED: ZOL100 PO (16:48)
[2016-12-05] MEDS ORDERED: T PO (16:49)
[2016-12-05] MEDS ORDERED: ENDOCET1 TAB PO (16:49)
[2016-12-05] MEDS ORDERED: PR25 PO (16:50)
[2016-12-05 17:02] LABS: ASCORBIC ACID (UR NOT ORDER) NEG (NEG); BILIRUBIN, URINE NEGATIVE (NEG); ER URINALYSIS TAT 0 Hrs 11 Mins; KETONE, URINE 20 MG/DL (NEG); LEUKOCYTE ESTERASE(NOT OR TRACE (NEG); NITRITE (URINE) NEG (NEG); WBC (NOT ORDERED) (RFLEX) 18 (0-5)
[2016-12-05 21:09] LABS: PROCALCITONIN 0.14 ng/mL (<0.5)
[2016-12-05 22:19] LABS: FREE T4 1.61 NG/DL (0.76-1.46); PREALBUMIN 5.2 MG/DL (17.0-43.0)
[2016-12-06 14:45] LABS: BASOPHILS 0.2 %; BASOPHILS ABSOLUTE 0.01 10/3/uL (0.0-0.16); EOSINOPHILS 1.9 %; EOSINOPHILS ABSOLUTE 0.09 10/3/uL (0.0-0.53); HEMATOCRIT 23.9 % (36.0-48.0); HEMOGLOBIN 7.4 g/dL (12.0-16.0); IMMATURE GRANULOCYTES 2.3 %; IMMATURE GRANULOCYTES ABSOLUTE 0.11 10/3/uL (0.0-0.11); LYMPHOCYTES 12.8 %; LYMPHOCYTES ABSOLUTE 0.61 10/3/uL (0.67-4.30); MEAN CORPUSCULAR HEMOGLOB 26.6 pg (26.0-34.0); MEAN PLATELET VOLUME 8.9 fL (9.2-13.0); MONOCYTES 4.8 %; MONOCYTES ABSOLUTE 0.23 10/3/uL (0.21-1.20); PLATELET COUNT 430 10/3/uL (150-400); RBC DISTRIBUTION WIDTH 18.5 % (12.0-16.0); RED CELL COUNT 2.78 10/6/uL (4.0-5.6); WHITE BLOOD CELLS 4.8 10/3/uL (4.5-10.5)
[2016-12-06 14:48] LABS: MANUAL DIFF NO %
[2016-12-06 14:57] LABS: BUN (BLOOD UREA NITROGEN) 8 MG/DL (6-23); CALCIUM, SERUM 7.6 MG/DL (8.5-10.4); CHLORIDE, SERUM 113 MMOL/L (96-112); CO2 (CARBON DIOXIDE) 22 MMOL/L (24-34); GFR AFRICAN AMERICAN 59 ML/MIN (>=60); GFR NON AFRICAN AMERICAN 51 ML/MIN (>=60); GLUCOSE, SERUM 101 MG/DL (60-99); POTASSIUM, SERUM 3.2 MMOL/L (3.5-5.3); SODIUM, SERUM 145 MMOL/L (135-148)
[2016-12-07 07:36] LABS: BASOPHILS 0.4 %; BASOPHILS ABSOLUTE 0.02 10/3/uL (0.0-0.16); EOSINOPHILS 2.7 %; EOSINOPHILS ABSOLUTE 0.13 10/3/uL (0.0-0.53); HEMATOCRIT 22.3 % (36.0-48.0); IMMATURE GRANULOCYTES 1.9 %; IMMATURE GRANULOCYTES ABSOLUTE 0.09 10/3/uL (0.0-0.11); LYMPHOCYTES 25.2 %; LYMPHOCYTES ABSOLUTE 1.21 10/3/uL (0.67-4.30); MEAN CORPUS HGB CONC 30.9 g/dL (32.0-36.0); MEAN CORPUSCULAR HEMOGLOB 26.8 pg (26.0-34.0); MEAN CORPUSCULAR VOLUME 86.8 fL (80-100); MEAN PLATELET VOLUME 8.5 fL (9.2-13.0); MONOCYTES 13.1 %; MONOCYTES ABSOLUTE 0.63 10/3/uL (0.21-1.20); NEUTROPHILS 56.7 %; NEUTROPHILS ABSOLUTE 2.72 10/3/uL (2.02-8.40); PLATELET COUNT 364 10/3/uL (150-400); RBC DISTRIBUTION WIDTH 19.4 % (12.0-16.0); RED CELL COUNT 2.57 10/6/uL (4.0-5.6); WHITE BLOOD CELLS 4.8 10/3/uL (4.5-10.5)
[2016-12-07 07:39] LABS: MANUAL DIFF NO %
[2016-12-07 07:41] LABS: BUN (BLOOD UREA NITROGEN) 6 MG/DL (6-23); CALCIUM, SERUM 7.3 MG/DL (8.5-10.4); CHLORIDE, SERUM 113 MMOL/L (96-112); CO2 (CARBON DIOXIDE) 21 MMOL/L (24-34); CREATININE 1.34 MG/DL (0.55-1.02); GFR AFRICAN AMERICAN 56 ML/MIN (>=60); GFR NON AFRICAN AMERICAN 49 ML/MIN (>=60); GLUCOSE, SERUM 95 MG/DL (60-99); POTASSIUM, SERUM 3.1 MMOL/L (3.5-5.3); SODIUM, SERUM 144 MMOL/L (135-148)
[2016-12-07 07:43] LABS: INTERNATIONAL NORMAL RATI 1.4 UNITS (-); PARTIAL THROMBO TIME 37.7 SEC (22.5-37.2); PROTIME (NOT ORD) 17.3 SEC (12.0-14.5)
[2016-12-08 06:16] LABS: HEMATOCRIT 22.7 % (36.0-48.0); MEAN CORPUSCULAR HEMOGLOB 26.4 pg (26.0-34.0); MEAN PLATELET VOLUME 8.9 fL (9.2-13.0); PLATELET COUNT 344 10/3/uL (150-400); RBC DISTRIBUTION WIDTH 19.5 % (12.0-16.0); RED CELL COUNT 2.58 10/6/uL (4.0-5.6)
[2016-12-08 06:20] LABS: WHITE BLOOD CELLS 8.5 10/3/uL (4.5-10.5)
[2016-12-08 06:22] LABS: HEMOGLOBIN 6.8 g/dL (12.0-16.0); MANUAL DIFF YES %
[2016-12-08 06:28] LABS: BUN (BLOOD UREA NITROGEN) 6 MG/DL (6-23); CALCIUM, SERUM 7.1 MG/DL (8.5-10.4); CHLORIDE, SERUM 111 MMOL/L (96-112); CO2 (CARBON DIOXIDE) 21 MMOL/L (24-34); CREATININE 1.34 MG/DL (0.55-1.02); GFR AFRICAN AMERICAN 56 ML/MIN (>=60); GFR NON AFRICAN AMERICAN 49 ML/MIN (>=60); GLUCOSE, SERUM 95 MG/DL (60-99); POTASSIUM, SERUM 3.1 MMOL/L (3.5-5.3); SODIUM, SERUM 141 MMOL/L (135-148)
[2016-12-08 07:09] LABS: BAND NEUTROPHILS 3 %; EOSINOPHILS 1 %; EOSINOPHILS ABSOLUTE (CALC) 0.09 10/3/uL (0.0-0.53); LYMPHOCYTES 23 %; LYMPHOCYTES ABSOLUTE (CALC) 1.96 10/3/uL (0.67-4.30); MONOCYTES 9 %; MONOCYTES ABSOLUTE (CALC) 0.77 10/3/uL (0.21-1.20); PLATELET ESTIMATE ADQ (ADEQUATE); SEGMENTED NEUTROPHIL (0) 64 %; TOTAL NUCLEATED CELLS 100
[2016-12-08 07:10] LABS: ANISOCYTOSIS 1+ (5-10/OIF) (0-5/OIF); MACROCYTES 1+ (5-10/OIF) (0-5/OIF); POLYCHROMASIA 1+ (2-5/OIF) (0-1/OIF)
[2016-12-08 07:26] LABS: PROCALCITONIN 0.22 ng/mL (<0.5)
[2016-12-08 09:46] LABS: ALKALINE PHOSPHATASE 124 U/L (45-117); PHOSPHORUS, SERUM 2.1 MG/DL (2.5-4.5); SGOT(AST) 22 U/L (5-40); TOTAL BILIRUBIN 0.2 MG/DL (0-1.2)
[2016-12-08 10:42] LABS: ASCORBIC ACID (UR NOT ORDER) NEG (NEG); BILIRUBIN, URINE NEGATIVE (NEG); KETONE, URINE NEGATIVE (NEG); LEUKOCYTE ESTERASE(NOT OR NEG (NEG); WBC (NOT ORDERED) (RFLEX) 1 (0-5)
[2016-12-09 05:19] LABS: HEMATOCRIT 22.1 % (36.0-48.0); HEMOGLOBIN 6.9 g/dL (12.0-16.0); MANUAL DIFF YES %; MEAN CORPUS HGB CONC 31.2 g/dL (32.0-36.0); MEAN CORPUSCULAR HEMOGLOB 27.2 pg (26.0-34.0); MEAN PLATELET VOLUME 8.9 fL (9.2-13.0); PLATELET COUNT 335 10/3/uL (150-400); RBC DISTRIBUTION WIDTH 19.3 % (12.0-16.0); RED CELL COUNT 2.54 10/6/uL (4.0-5.6); WHITE BLOOD CELLS 5.7 10/3/uL (4.5-10.5)
[2016-12-09 05:38] LABS: BUN (BLOOD UREA NITROGEN) 6 MG/DL (6-23); CALCIUM, SERUM 7.4 MG/DL (8.5-10.4); CHLORIDE, SERUM 113 MMOL/L (96-112); CO2 (CARBON DIOXIDE) 18 MMOL/L (24-34); CREATININE 1.13 MG/DL (0.55-1.02); GFR AFRICAN AMERICAN 69 ML/MIN (>=60); GFR NON AFRICAN AMERICAN 60 ML/MIN (>=60); GLUCOSE, SERUM 90 MG/DL (60-99); POTASSIUM, SERUM 3.9 MMOL/L (3.5-5.3); SODIUM, SERUM 142 MMOL/L (135-148)
[2016-12-09 06:22] LABS: ANISOCYTOSIS 1+ (5-10/OIF) (0-5/OIF); BAND NEUTROPHILS 2 %; EOSINOPHILS 3 %; EOSINOPHILS ABSOLUTE (CALC) 0.17 10/3/uL (0.0-0.53); LYMPHOCYTES 15 %; LYMPHOCYTES ABSOLUTE (CALC) 0.86 10/3/uL (0.67-4.30); MONOCYTES 5 %; MONOCYTES ABSOLUTE (CALC) 0.29 10/3/uL (0.21-1.20); NEUTROPHILS ABSOLUTE (CALC) 4.39 10/3/uL (2.02-8.40); PLATELET ESTIMATE ADQ (ADEQUATE); SEGMENTED NEUTROPHIL (0) 75 %; TOTAL NUCLEATED CELLS 100
[2016-12-09 06:23] LABS: POLYCHROMASIA 1+ (2-5/OIF) (0-1/OIF)
[2016-12-10 17:23] LABS: CMV DNA PCR QUAL Detected (NOTDET); CMV SOURCE Plasma (())
[2016-12-11 05:54] LABS: HEMATOCRIT 23.2 % (36.0-48.0); HEMOGLOBIN 7.4 g/dL (12.0-16.0); MEAN CORPUS HGB CONC 31.9 g/dL (32.0-36.0); MEAN CORPUSCULAR HEMOGLOB 27.4 pg (26.0-34.0); MEAN CORPUSCULAR VOLUME 85.9 fL (80-100); MEAN PLATELET VOLUME 8.8 fL (9.2-13.0); PLATELET COUNT 287 10/3/uL (150-400); WHITE BLOOD CELLS 7.6 10/3/uL (4.5-10.5)
[2016-12-11 05:54] LABS: ALBUMIN 1.3 G/DL (3.5-5.0); BUN (BLOOD UREA NITROGEN) 5 MG/DL (6-23); CALCIUM, SERUM 7.6 MG/DL (8.5-10.4); CHLORIDE, SERUM 109 MMOL/L (96-112); CO2 (CARBON DIOXIDE) 19 MMOL/L (24-34); CREATININE 1.16 MG/DL (0.55-1.02); GFR AFRICAN AMERICAN 67 ML/MIN (>=60); GFR NON AFRICAN AMERICAN 58 ML/MIN (>=60); GLUCOSE, SERUM 89 MG/DL (60-99); PHOSPHORUS, SERUM 2.4 MG/DL (2.5-4.5); POTASSIUM, SERUM 4.3 MMOL/L (3.5-5.3); SODIUM, SERUM 139 MMOL/L (135-148)
[2016-12-11 05:57] LABS: MANUAL DIFF YES %
[2016-12-11 06:26] LABS: ANISOCYTOSIS 1+ (5-10/OIF) (0-5/OIF); IMMATURE GRANS ABSOLUTE (CALC) 0.08 10/3/uL (0.0-0.11); LYMPHOCYTES 18 %; LYMPHOCYTES ABSOLUTE (CALC) 1.37 10/3/uL (0.67-4.30); METAMYELOCYTES 1 %; MONOCYTES 8 %; MONOCYTES ABSOLUTE (CALC) 0.61 10/3/uL (0.21-1.20); NEUTROPHILS ABSOLUTE (CALC) 5.55 10/3/uL (2.02-8.40); PLATELET ESTIMATE ADQ (ADEQUATE); RBC MORPHOLOGY ABN (NORMAL); SEGMENTED NEUTROPHIL (0) 73 %; TOTAL NUCLEATED CELLS 100
[2016-12-12 12:25] LABS: HEMATOCRIT 25.8 % (36.0-48.0); HEMOGLOBIN 8.8 g/dL (12.0-16.0)
[2016-12-12 12:40] LABS: BUN (BLOOD UREA NITROGEN) 6 MG/DL (6-23); CALCIUM, SERUM 7.6 MG/DL (8.5-10.4); CHLORIDE, SERUM 107 MMOL/L (96-112); CO2 (CARBON DIOXIDE) 19 MMOL/L (24-34); CREATININE 1.08 MG/DL (0.55-1.02); GFR AFRICAN AMERICAN 73 ML/MIN (>=60); GFR NON AFRICAN AMERICAN 63 ML/MIN (>=60); GLUCOSE, SERUM 75 MG/DL (60-99); PHOSPHORUS, SERUM 2.4 MG/DL (2.5-4.5); SODIUM, SERUM 133 MMOL/L (135-148)
[2016-12-12 12:42] LABS: POTASSIUM, SERUM 4.8 MMOL/L (3.5-5.3)
[2016-12-13 07:22] LABS: HEMOGLOBIN 7.7 g/dL (12.0-16.0)
[2016-12-13 07:46] LABS: BUN (BLOOD UREA NITROGEN) 5 MG/DL (6-23); CALCIUM, SERUM 7.2 MG/DL (8.5-10.4); CHLORIDE, SERUM 107 MMOL/L (96-112); CO2 (CARBON DIOXIDE) 20 MMOL/L (24-34); CREATININE 0.98 MG/DL (0.55-1.02); GFR AFRICAN AMERICAN 82 ML/MIN (>=60); GFR NON AFRICAN AMERICAN 71 ML/MIN (>=60); GLUCOSE, SERUM 90 MG/DL (60-99); PHOSPHORUS, SERUM 2.6 MG/DL (2.5-4.5); POTASSIUM, SERUM 5.2 MMOL/L (3.5-5.3); SODIUM, SERUM 136 MMOL/L (135-148)
[2017-04-19] MEDS ORDERED: FERROUS SULF325 M1 PO (16:00)
[2017-04-19] MEDS ORDERED: REG5 PO (16:01)
[2017-04-19] MEDS ORDERED: KLOR-CON 1010 MEQ PO (16:01)
[2017-04-19] MEDS ORDERED: VITC500 PO (16:03)
[2017-04-19] MEDS ORDERED: PROZAC40 MG PO (16:03)
[2017-04-19] MEDS ORDERED: CLARIT10 PO (16:04)
[2017-04-19] MEDS ORDERED: JANTOVEN1 MG PO (16:04)
[2017-04-19] MEDS ORDERED: HALF81 PO (16:05)
[2017-04-19] MEDS ORDERED: PRILO PO (16:05)
[2017-04-19] MEDS ORDERED: L20 PO (16:05)
[2017-04-24] MEDS ORDERED: PROTONIX PO (14:34)
[2017-04-24] MEDS ORDERED: FESO4 PO (14:37)
[2017-04-24] MEDS ORDERED: P10 (14:39)
== END 2016-12-13 12:30 | DRG 380 ==
LOC: ER 13:06 → 4EA 20:05
PROVIDERS: Internal Medicine; Internal Medicine Gastroenterology; Nurse Practitioner Family; Physical Medicine & Rehabilitation; Physician Assistant
PROC: 0DB28ZX Excision of Middle Esophagus, Via Natural or Artificial Opening Endoscopic, Diagnostic (ICD-10-PCS; principal; 2016-12-05)
PROC: 0W9J30Z Drainage of Pelvic Cavity with Drainage Device, Percutaneous Approach (ICD-10-PCS; 2016-12-09)
PROC: 30233N0 Transfusion of Autologous Red Blood Cells into Peripheral Vein, Percutaneous Approach (ICD-10-PCS; 2016-12-09)
DX: K22.10 Ulcer of esophagus without bleeding (principal); E43 Unspecified severe protein-calorie malnutrition; N17.9 Acute kidney failure, unspecified; E87.2 Acidosis; M32.9 Systemic lupus erythematosus, unspecified; E88.09 Other disorders of plasma-protein metabolism, not elsewhere classified; N39.0 Urinary tract infection, site not specified; R13.10 Dysphagia, unspecified; D64.9 Anemia, unspecified; E83.42 Hypomagnesemia; Z68.27 Body mass index [BMI] 27.0-27.9, adult; F71 Moderate intellectual disabilities; E87.6 Hypokalemia
CPT/HCPCS: 36415; 49083; 49418; 49424; 71010; 74176; 74177; 76080; 80048; 80053; 80069; 81001; 82247; 82330; 82962; 83036; 83605; 83690; 83735; 84075; 84100; 84134; 84145; 84439; 84443; 84450; 84703; 85014; 85018; 85025; 85610; 85730; 86850; 86860; 86870; 86880; 86880-59; 86900; 86901; 86902; 86920; 86922; 87040; 87045; 87046; 87046-59; 87070; 87075; 87077; 87186; 87205; 87252; 87328; 87329; 87493; 87493-59; 87496; 87899; 87899-59; 88305; 88341; 88342; 89055; 92610-GN; 96374; 96375; 97161-GP; 99285; A9270-GY; C1769; C9113; J2270; J2370; J2405; J2543; J3010; J3475; P9016; Q9967